=== PATIENT | male | born 1985 | race American Indian/Alaskan Native ===

== ENCOUNTER 2020-11-14 20:06 | Emergency (ER) | payer SELFPAY ==
[2020-11-14 21:30] VITALS: BP 176/99
[2020-11-15 00:02] LABS: Hematocrit 35.7 % (35.5-45.6); Hemoglobin 12.1 gm/dl (11.8-15.2); Mean Corpuscular HGB Conc 34 % (32-34); Mean Corpuscular Volume 80 fl (84-94); Platelet Count 534 K/mm3 (140-440); Red Blood Count 4.45 M/mm3 (3.65-5.03)
[2020-11-15 01:24] LABS: BUN/Creatinine Ratio TNR; Blood Urea Nitrogen TNR mg/dL (9-20); Calcium TNR mg/dL (8.4-10.2)
[2020-11-15 01:25] LABS: Alanine Aminotransferase TNR units/L (7-56); Albumin TNR g/dL (3.9-5); Hemolysis Index TNR
[2020-11-15] MEDS ORDERED: methylPREDNISolone Sod Succinate 125 MG/2 ML INJ IV ONE (02:18)
[2020-11-15 02:45] LABS: Bilirubin,Urine NEG (Negative); Blood,Urine NEG (Negative); Color,Urine Yellow (Yellow); Mucus,Urine 1+ /HPF; Protein,Urine <15 mg/dL mg/dL (Negative); Urobilinogen,Urine < 2.0 mg/dL (<2.0)
--- NOTE | 2020-11-15 02:46 | Emergency Department Report ---
ED Neuro Deficit HPI - General Chief Complaint: Extremity Injury, Lower Stated Complaint: MS PAIN,NUMBNESS Time Seen by Provider: 11/15/20 01:29 Source: patient Mode of arrival: Wheelchair Limitations: No Limitations - History of Present Illness Initial Comments: 35-year-old F Congolese male with a known history of multiple sclerosis noncompliant with medications was previously being seen at [facility] but has now reverted to utilizing various emergency departments for his thyroid management and taking no regulatory medications. Reports no fevers chills or sweats no no chest pain but does have progressively worsening tingling and weakness and ataxia to her lower extremities which has been worsening over the last 1 week. Symptoms overall have been present for over 3 weeks. He reports no trauma, no tingling no speech issues no headaches no blurred vision no shortness of breath no illicit drug use. -: Gradual (2 to 3 weeks of symptoms with which worsened over the last week) Location: ataxia Presenting Symptoms: Absent: Weak/Paralyzed One Side, Sudden, Severe Headache, Blurred/Loss of Vision, Facial Droop/Numbness, Unable to Speak Clearly, Altered Mental Status History of same: Yes Place: home Severity: mild, moderate Quality: tingling On Anticoagulants: No Context: gradual onset Associated Symptoms: denies: confusion, chest pain, diaphoresis, loss of appetite, malise, nausea/vomiting, vertigo, seizures, syncope, weakness Treatments Prior to Arrival: none - Related Data Home Medications: Previous Rx's Medication Instructions Recorded Last Taken Type methylPREDNISolone [Medrol 4MG 4 mg PO DAILY #21 tab.ds.pk 11/15/20 Unknown Rx DOSEPAK (21 tabs)] Allergies/Adverse Reactions: Allergies Allergy/AdvReac Type Severity Reaction Status Date / Time albuterol Allergy Hives Verified 11/14/20 21:30 ibuprofen Allergy Hives Verified 11/14/20 21:30 ED Review of Systems ROS: Stated complaint: MS PAIN,NUMBNESS Other details as noted in HPI Comment: All other systems reviewed and negative ED Past Medical Hx - Past Medical History Previous Medical History?: Yes Hx Hypertension: Yes Hx Psychiatric Treatment: Yes (Depression, Anxiety) Additional medical history: Multiple Scelerosis - Surgical History Past Surgical History?: No - Social History Smoking Status: Current Every Day Smoker Substance Use Type: Marijuana - Medications Home Medications: Home Medications Medication Instructions Recorded Confirmed Last Taken Type methylPREDNISolone [Medrol 4MG 4 mg PO DAILY #21 tab.ds.pk 11/15/20 Unknown Rx DOSEPAK (21 tabs)] ED Neuro Physical Exam - General Limitations: No Limitations General appearance: alert, in no apparent distress Suspected Stroke: No - Head Head exam: Present: atraumatic, normocephalic - Eye Eye exam: Present: normal appearance, PERRL, EOMI Pupils: Present: normal accommodation - ENT ENT exam: Present: normal exam, normal orophraynx, mucous membranes moist, TM's normal bilaterally - Neck Neck exam: Present: normal inspection - Respiratory Respiratory exam: Present: normal lung sounds bilaterally. Absent: respiratory distress - Cardiovascular Cardiovascular Exam: Present: regular rate, normal rhythm. Absent: systolic murmur, diastolic murmur, rubs, gallop - GI/Abdominal GI/Abdominal exam: Present: soft, normal bowel sounds. Absent: tenderness, guarding, hypoactive bowel sounds - Rectal Rectal exam: Present: deferred - Extremities Exam Extremities exam: Present: normal inspection - Back Exam Back exam: Present: normal inspection - Neurological Exam Neurological exam: Present: alert, oriented X3, abnormal gait (Ataxia noted) - NIHSS Assessment Interval: Baseline 1a. Level of Consciousness: alert/keenly responsive 1b. LOC Questions: answers both correctly 1c. LOC Commands: performs tasks correctly 2. Best Gaze: normal 3. Visual: no visual loss 4. Facial Palsy: normal symmetrical movement 5b. Motor Arm Right: no drift 5a. Motor Arm Left: no drift 6a. Motor Leg Left: no drift 6b. Motor Leg Right: no drift 7. Limb Ataxia: present 2 limbs 8. Sensory: normal 9. Best Language: no aphasia 10. Dysarthria: normal 11. Extinction/Inattention: no abnormality Total Score: 2 Stroke Severity: Minor Stroke - Psychiatric Psychiatric exam: Present: normal affect, normal mood - Skin Skin exam: Present: warm, dry, intact, normal color. Absent: rash ED Course Vital Signs 11/14/20 21:29 Temperature 98.2 F Pulse Rate 102 H Respiratory 18 Rate Blood Pressure 176/99 [Left] O2 Sat by Pulse 100 Oximetry - Lab Data Result diagrams: 11/14/20 23:13 11/14/20 23:13 Lab Results 11/14/20 11/14/20 11/15/20 Range/Units 23:13 23:13 01:30 WBC 9.4 (4.5-11.0) K/mm3 RBC 4.45 (3.65-5.03) M/mm3 Hgb 12.1 (11.8-15.2) gm/dl Hct 35.7 (35.5-45.6) % MCV 80 L (84-94) fl MCH 27 L (28-32) pg MCHC 34 (32-34) % RDW 21.0 H (13.2-15.2) % Plt Count 534 H (140-440) K/mm3 Add Manual Diff Complete Total Counted 100 Seg Neuts % (Manual) 62.0 (40.0-70.0) % Band Neutrophils % 1.0 % Lymphocytes % (Manual) 33.0 (13.4-35.0) % Monocytes % (Manual) 4.0 (0.0-7.3) % Nucleated RBC % Not Reportable Seg Neutrophils # Man 5.8 (1.8-7.7) K/mm3 Band Neutrophils # 0.1 K/mm3 Lymphocytes # (Manual) 3.1 (1.2-5.4) K/mm3 Abs React Lymphs (Man) 0.0 K/mm3 Monocytes # (Manual) 0.4 (0.0-0.8) K/mm3 Eosinophils # (Manual) 0.0 (0.0-0.4) K/mm3 Basophils # (Manual) 0.0 (0.0-0.1) K/mm3 Metamyelocytes # 0.0 K/mm3 Myelocytes # 0.0 K/mm3 Promyelocytes # 0.0 K/mm3 Blast Cells # 0.0 K/mm3 WBC Morphology Not Reportable Hypersegmented Neuts Not Reportable Hyposegmented Neuts Not Reportable Hypogranular Neuts Not Reportable Smudge Cells Not Reportable Toxic Granulation Not Reportable Toxic Vacuolation Not Reportable Dohle Bodies Not Reportable Pelger-Huet Anomaly Not Reportable Jolene Rods Not Reportable Platelet Estimate Consistent w auto Clumped Platelets Not Reportable Plt Clumps, EDTA Not Reportable Large Platelets Not Reportable Giant Platelets Not Reportable Platelet Satelliting Not Reportable Plt Morphology Comment Not Reportable RBC Morphology Not Reportable Dimorphic RBCs Not Reportable Polychromasia Not Reportable Hypochromasia Not Reportable Poikilocytosis Not Reportable Anisocytosis 1+ Microcytosis Not Reportable Macrocytosis Not Reportable Spherocytes Not Reportable Pappenheimer Bodies Not Reportable Sickle Cells Not Reportable Target Cells Not Reportable Tear Drop Cells Not Reportable Ovalocytes Not Reportable Helmet Cells Not Reportable [place] Bodies Not Reportable [place] Rings Not Reportable Marie Cells Not Reportable Bite Cells Not Reportable Crenated Cell Not Reportable Elliptocytes Not Reportable Acanthocytes (Spur) Not Reportable Rouleaux Not Reportable Hemoglobin C Crystals Not Reportable Schistocytes Not Reportable Malaria parasites Not Reportable Cricket Bodies Not Reportable Hem Pathologist Commnt No Sodium TNR Potassium TNR Chloride TNR Carbon Dioxide TNR Anion Gap TNR BUN TNR Creatinine TNR Estimated GFR TNR BUN/Creatinine Ratio TNR Glucose TNR Calcium TNR Total Bilirubin TNR AST TNR ALT TNR Alkaline Phosphatase TNR Total Protein TNR Albumin TNR Albumin/Globulin Ratio TNR Urine Color Yellow (Yellow) Urine Turbidity Clear (Clear) Urine pH 5.0 (5.0-7.0) Ur Specific [place] 1.015 (1.003-1.030) Urine Protein <15 mg/dl (Negative) mg/dL Urine Glucose (UA) Neg (Negative) mg/dL Urine Ketones Neg (Negative) mg/dL Urine Blood Neg (Negative) Urine Nitrite Neg (Negative) Urine Bilirubin Neg (Negative) Urine Urobilinogen < 2.0 (<2.0) mg/dL Ur Leukocyte Esterase Neg (Negative) Urine WBC (Auto) 0.0 (0.0-6.0) /HPF Urine RBC (Auto) 2.0 (0.0-6.0) /HPF Urine Mucus 1+ /HPF - Radiology Data Radiology results: report reviewed [facility] [address] [place] [address] Cat Scan Report Signed Patient: LUC GILBERT MR#: [id number] : 1985 Acct:[id number] Age/Sex: 35 / M ADM Date: 11/14/20 Loc: ED Attending Dr: Ordering Physician: MICHELLE LOPEZ Date of Service: 11/15/20 Procedure(s): CT head/brain wo con Accession Number(s): [id number] cc: MICHELLE LOPEZ CT HEAD WITHOUT CONTRAST INDICATION: pain, MS flare, ataxia TECHNIQUE: All CT scans at this location are performed using CT dose reduction for ALARA by means of automated exposure control. COMPARISON: None available. FINDINGS: BRAIN: No hemorrhage or mass effect are seen. No evidence of acute infarction is noted. ORBITS: Normal as visualized. SOFT TISSUES OF HEAD: Normal. CALVARIUM: Normal. VISUALIZED PARANASAL SINUSES AND MASTOID AIR CELLS: Clear. ADDITIONAL FINDINGS: None. IMPRESSION: No acute intracranial abnormality. Signer Name: Sylvester Vital MD Signed: 11/15/2020 3:06 AM Workstation Name: [id number] Transcribed By: GJ Dictated By: Sylvester Vital MD Electronically Authenticated By: Sylvester Vital MD Signed Date/Time: 11/15/20305 DD/ 2 TD/TT: - Medical Decision Making 35-year-old male with known history moved closer to the emergency department c omplaining of a flareup. Examination did show some signs of ataxia and some weakness he was treated accordingly with a dose of steroids. Case was discussed with hospitalist Dr. Flaca morelos advised no reason for admission and recommended he be discharged with follow-up at the [facility]. Mr. Strickland states that he has been seen at the [facility] previously and was a patient but had for reasons unknown to stop taking the medication and stopped on states he is able to get a follow-up appointment at the facility but does request steroids now and feels he is safe to go home and will return if his symptoms worsen. Attending is aware of findings and recommendations Critical care attestation.: If time is entered above; I have spent that time in minutes in the direct care of this critically ill patient, excluding procedure time. ED Disposition Clinical Impression: Acute relapsing multiple sclerosis Disposition: - TO HOME OR SELFCARE Is pt being admited?: No Does the pt Need Aspirin: No Condition: Stable Instructions: Multiple Sclerosis Additional Instructions: Please be sure to follow-up at the [facility] which you already established as we discussed. Prescriptions: methylPREDNISolone [Medrol 4MG DOSEPAK (21 tabs)] 4 mg PO DAILY #21 tab.ds.pk Referrals: [facility], [place] [Other] - 3-5 Days PRIMARY CARE, [Primary Care Provider] - 3-5 Days
--- NOTE | 2020-11-15 03:11 | Cat Scan Report ---
CT HEAD WITHOUT CONTRAST INDICATION: pain, MS flare, ataxia TECHNIQUE: All CT scans at this location are performed using CT dose reduction for ALARA by means of automated exposure control. COMPARISON: None available. FINDINGS: BRAIN: No hemorrhage or mass effect are seen. No evidence of acute infarction is noted. ORBITS: Normal as visualized. SOFT TISSUES OF HEAD: Normal. CALVARIUM: Normal. VISUALIZED PARANASAL SINUSES AND MASTOID AIR CELLS: Clear. ADDITIONAL FINDINGS: None. IMPRESSION: No acute intracranial abnormality. Signer Name: Sylvester Vital MD Signed: 11/15/2020 3:06 AM Workstation Name: [id number]
[2020-11-15 03:25] LABS: Total Cells Counted 100
[2020-11-15 03:26] LABS: Anisocytosis 1+; Band Neutrophils # (Manual) 0.1 K/mm3; Platelet Estimate Consistent w Auto
[2020-11-15] MEDS ORDERED: methylPREDNISolone Sod Succinate 125 MG/2 ML INJ ONE (04:24)
[2020-11-15 06:39] LABS: Alanine Aminotransferase 14 units/L (7-56); Albumin 4.1 g/dL (3.9-5); BUN/Creatinine Ratio 14; Blood Urea Nitrogen 10 mg/dL (9-20); Hemolysis Index 2
== END 2020-11-15 05:50 | disposition home or self-care (01) ==
LOC: ED 20:06
DX: G35 Multiple sclerosis (principal); I10 Essential (primary) hypertension; F32.9 Major depressive disorder, single episode, unspecified; F41.9 Anxiety disorder, unspecified; F17.200 Nicotine dependence, unspecified, uncomplicated; F12.10 Cannabis abuse, uncomplicated; Z79.899 Other long term (current) drug therapy; Z88.8 Allergy status to other drugs, medicaments and biological substances
CPT/HCPCS: 36415; 70450; 80053; 81001; 85007; 85025; 96374; 99284; J2930

== ENCOUNTER 2020-11-15 10:57 | Inpatient (IN) | payer OTHER ==
--- NOTE | 2020-11-15 17:27 | Emergency Department Report ---
HPI - General Chief Complaint: Pain General Time Seen by Provider: 11/15/20 17:06 - HPI HPI: Room 43 The patient is a 35-year-old male present with a chief complaint of MS crisis. The patient states his symptoms began approximately 3 weeks ago with symptoms consistent with his previous MS flares which includes numbness and weakness in all of his extremities. The patient states he initially found himself stumbling and missing steps. Over the past 5 days the patient states she has been unable to walk or performs his activities of daily living secondary to this weakness. The patient states he has a wheelchair at home however with his upper extremity weakness he is unable to propel himself. The patient states he lives at home alone. The patient was seen yesterday for these complaints and given Solu- Medrol and a prescription for steroids to go home. The patient states his legs had felt slightly improved but he is still unable to care for himself at home. ED Past Medical Hx - Past Medical History Previous Medical History?: Yes Hx Hypertension: Yes Hx Psychiatric Treatment: Yes (Depression, Anxiety) Additional medical history: Multiple Scelerosis - Surgical History Past Surgical History?: No - Family History Family history: no significant - Social History Smoking Status: Current Every Day Smoker (1/3 pack/day) Substance Use Type: Marijuana - Medications Home Medications: Home Medications Medication Instructions Recorded Confirmed Last Taken Type methylPREDNISolone [Medrol 4MG 4 mg PO DAILY #21 tab.ds.pk 11/15/20 Unknown Rx DOSEPAK (21 tabs)] ED Review of Systems ROS: Stated complaint: MS CRISIS Other details as noted in HPI Constitutional: denies: fever Eyes: denies: eye pain ENT: denies: throat pain Respiratory: no symptoms reported Cardiovascular: denies: chest pain Endocrine: no symptoms reported Gastrointestinal: denies: abdominal pain Genitourinary: denies: dysuria Musculoskeletal: back pain Neurological: headache Physical Exam - Physical Exam Vital Signs: Vital Signs 11/15/20 11:48 Temperature 97.5 F L Pulse Rate 87 Respiratory 18 Rate Blood Pressure 208/104 [Right] O2 Sat by Pulse 96 Oximetry Physical Exam: GENERAL: The patient is well-developed well-nourished male sitting in chair not appearing to be in acute distress HEENT: Normocephalic. Atraumatic. Extraocular motions are intact. Patient has moist mucous membranes. NECK: Supple. Trachea midline CHEST/LUNGS: Clear to auscultation. There is no respiratory distress noted. HEART/CARDIOVASCULAR: Regular. There is no tachycardia. There is no gallop rub or murmur. ABDOMEN: Abdomen is soft, nontender. Patient has normal bowel sounds. There is no abdominal distention. SKIN: There is no rash. There is no edema. There is no diaphoresis. NEURO: The patient is awake, alert, and oriented. The patient is cooperative. The patient is unable to stand secondary to weakness in the lower extremities. The patient exhibits difficulty extending either leg at the knee while seated. The patient states both legs feel numb to light touch. The patient has normal speech. Cranial nerves II through XII grossly intact MUSCULOSKELETAL: There is no evidence of acute injury. ED Course Vital Signs 11/15/20 11:48 Temperature 97.5 F L Pulse Rate 87 Respiratory 18 Rate Blood Pressure 208/104 [Right] O2 Sat by Pulse 96 Oximetry ED Medical Decision Making - Lab Data Labs reviewed from 11/14/2020 visit - Differential Diagnosis MS flare Critical care attestation.: If time is entered above; I have spent that time in minutes in the direct care of this critically ill patient, excluding procedure time. ED Disposition Clinical Impression: Multiple sclerosis exacerbation, Inability to perform activities of daily living Disposition: OP ADMIT IP TO THIS HOSP Is pt being admited?: Yes Does the pt Need Aspirin: No Condition: Fair Referrals: PRIMARY CARE, [Primary Care Provider] - 3-5 Days Time of Disposition: 21:08 (Hospitalist paged (Dr. Thayer))
[2020-11-15] MEDS ORDERED: methylPREDNISolone Sod Succinate 125 MG/2 ML INJ IV ONE (18:31)
[2020-11-15] MEDS ORDERED: HYDROcodone/ACETAMINOPHEN 5-325 MG TAB PO ONE (19:28)
[2020-11-16] MEDS ORDERED: METOCLOPRAMIDE 10 MG/2 ML INJ IV PRN (02:33)
[2020-11-16] MEDS ORDERED: ACETAMINOPHEN 325 MG TAB PO PRN (02:33)
[2020-11-16] MEDS ORDERED: HYDROmorphone 1 MG/1 ML INJ IV PRN (02:33)
[2020-11-16] MEDS ORDERED: ONDANSETRON 4 MG/2 ML INJ IV PRN (02:33)
[2020-11-16] MEDS ORDERED: SODIUM CHLORIDE 0.9% 1000 ML 1,000 ML IV SCH (02:45)
--- NOTE | 2020-11-16 03:09 | History and Physical Report ---
History of Present Illness Date of examination: 11/15/20 Date of admission: 11/15/20 22:33 Chief complaint: Weakness in both lower extremities for 5 days with inability to walk History of present illness: 35-year-old -Nigerien male with history of multiple sclerosis diagnosed in early part of 2018 comes in for weakness in both lower extremities for the last 3 weeks but more so for the last 5 days when he was unable to walk. Patient came to the emergency room yesterday and was discharged on Medrol Dosepak. Patient comes back again for lower extremity weakness for the last 5 days and not able to walk. Patient also has numbness and paresthesias. In both lower extremities. Patient gets multiple sclerosis flareups once in every 3 to 4 months. Is been going on for the last 20 months. Patient also has a wheelchair but unable to propel himself because of his upper extremity weakness. He lives at home alone. Patient is unable to take care of himself at home. - Past Medical History Previous Medical History?: Yes --Hypertension: Yes --Psychiatric Treatment: Yes (Depression, Anxiety) --Additional medical history: Multiple Scelerosis - Surgical History Past Surgical History?: No - Family History Family history: no significant - Social History Smoking Status: Current Every Day Smoker (1/3 pack/day) Substance Use Type: Marijuana - Medications Home Medications: Home Medications Medication Instructions Recorded Confirmed Last Taken Type methylPREDNISolone [Medrol 4MG 4 mg PO DAILY #21 tab.ds.pk 11/15/20 Unknown Rx DOSEPAK (21 tabs)] Review of Systems ROS: Stated complaint: MS CRISIS Other details as noted in HPI Constitutional: denies: fever Eyes: denies: eye pain ENT: denies: throat pain Respiratory: no symptoms reported Cardiovascular: denies: chest pain Endocrine: no symptoms reported Gastrointestinal: denies: abdominal pain Genitourinary: denies: dysuria Musculoskeletal: back pain Neurological: headache Medications and Allergies Allergies Allergy/AdvReac Type Severity Reaction Status Date / Time albuterol Allergy Hives Verified 11/14/20 21:30 ibuprofen Allergy Hives Verified 11/14/20 21:30 Home Medications Medication Instructions Recorded Confirmed Last Taken Type Cholecalciferol Vit D3 [Vitamin D3 tab PO 11/15/20 Unknown History 1,000 UNIT TAB] Folic Acid 1 mg PO 11/15/20 Unknown History Gabapentin [Neurontin] 400 mg PO Q8HR 11/15/20 11/15/20 Unknown History HYDROmorphone [Dilaudid] tab PO 11/15/20 11/15/20 21:00 History Naproxen 375 mg PO 11/15/20 Unknown History QUEtiapine [SEROquel] 200 mg PO BID 11/15/20 11/15/20 Unknown History Sertraline [Zoloft] 50 mg PO 11/15/20 Unknown History Vitamin B-1 11/15/20 Unknown History methylPREDNISolone [Medrol 4MG 4 mg PO DAILY #21 tab.ds.pk 11/15/20 Unknown Rx DOSEPAK (21 tabs)] Active Meds: Active Medications Acetaminophen (Acetaminophen 325 Mg Tab) 650 mg PO Q4H PRN PRN Reason: Pain MILD(1-3)/Fever >100.5/HILARIO Famotidine (Famotidine 20 Mg/2 Ml Inj) 20 mg IV BID [facility] Folic Acid (Folic Acid 1 Mg Tab) 1 mg PO QDAY SHANTANU Gabapentin (Gabapentin 400 Mg Cap) 400 mg PO Q8HR SHANTANU Hydromorphone HCl (Hydromorphone 1 Mg/1 Ml Inj) 1 mg IV Q3H PRN PRN Reason: Pain , Severe (7-10) Sodium Chloride (Nacl 0.9% 1000 Ml) 1,000 mls @ 75 mls/hr IV DIRECT SHANTANU Methylprednisolone Sodium Succinate 1,000 mg/ Sodium Chloride 250 mls @ 250 mls/hr IV Q24H [facility] Stop: 11/21/20 02:59 Metoclopramide HCl (Metoclopramide 10 Mg/2 Ml Inj) 10 mg IV Q6H PRN PRN Reason: Nausea And Vomiting Ondansetron HCl (Ondansetron 4 Mg/2 Ml Inj) 4 mg IV Q8H PRN PRN Reason: Nausea And Vomiting Oxycodone/Acetaminophen (Oxycodone /Acetaminophen 5-325mg Tab) 1 tab PO Q6H PRN PRN Reason: Pain, Moderate (4-6) Quetiapine Fumarate (Quetiapine 200 Mg Tab) 200 mg PO BID SH[facility] Sertraline HCl (Sertraline 50 Mg Tab) 50 mg PO QDAY [facility] Sodium Chloride (Sodium Chloride 0.9% 10 Ml Flush Syringe) 10 ml IV BID [facility] Sodium Chloride (Sodium Chloride 0.9% 10 Ml Flush Syringe) 10 ml IV PRN PRN PRN Reason: LINE FLUSH Exam - Constitutional Vitals: Temp Pulse Resp BP Pulse Ox 98.3 F 82 16 126/87 98 11/15/20 23:43 11/15/20 23:43 11/16/20 00:05 11/15/20 23:43 11/16/20 00:05 General appearance: Present: no acute distress, well-nourished - EENT Eyes: Present: PERRL ENT: hearing intact, clear oral mucosa - Neck Neck: Present: supple, normal ROM - Respiratory Respiratory effort: normal Respiratory: bilateral: CTA - Cardiovascular Heart rate: 78 Rhythm: regular Heart Sounds: Present: S1 & S2. Absent: rub, click - Extremities Extremities: pulses symmetrical, No edema Peripheral Pulses: within normal limits - Abdominal General gastrointestinal: Present: soft, non-tender, non-distended, normal bowel sounds Male genitourinary: Present: normal - Integumentary Integumentary: Present: clear, warm, dry - Musculoskeletal Musculoskeletal: other (Both lower extremity weakness power is 1/5 in both lower extremities. Sensation normal) - Psychiatric Psychiatric: appropriate mood/affect, intact judgment & insight - Neurologic Neurologic: CNII-XII intact, focal deficits (Power is 1/5 power in both lower extremities) Assessment and Plan Advance Directives: Yes (Full code) VTE prophylaxis?: Chemical Plan of care discussed with patient/family: Yes - Patient Problems (1) Multiple sclerosis exacerbation Current Visit: Yes Status: Acute Plan to address problem: Patient unable to walk. Patient started on 1 g of Solu-Medrol every 24 hours for 5 days Patient admitted as inpatient Neurology consult requested (2) Inability to perform activities of daily living Current Visit: Yes Status: Acute Plan to address problem: Patient needs physical therapy and Occupational Therapy (3) Depression Current Visit: Yes Status: Chronic Qualifiers: Depression Type: unspecified Qualified Code(s): F32.9 - Major depressive disorder, single episode, unspecified Plan to address problem: Continue Zoloft (4) Nicotine dependence Current Visit: Yes Status: Chronic Qualifiers: Nicotine product type: cigarettes Plan to address problem: Patient counseled about smoking. Patient started on NicoDerm patch (5) DVT prophylaxis Current Visit: Yes Status: Acute Plan to address problem: On Lovenox 40 mg once a day and GI prophylaxis
[2020-11-16] MEDS: FAMOTIDINE 20 MG/2 ML INJ IV SCH ×3 (03:46→21:25)
[2020-11-16] MEDS: QUEtiapine 200 MG TAB PO SCH ×3 (05:00→21:25)
[2020-11-16] MEDS: methylPREDNISolone Sod Suc 1,000 MG in SODIUM CHLORIDE 0.9% 250ML 250 ML IV SCH (05:02)
[2020-11-16] MEDS: GABAPENTIN 400 MG CAP PO SCH ×3 (05:47→21:25)
[2020-11-16 05:58] LABS: Hematocrit 37.7 % (35.5-45.6); Hemoglobin 12.3 gm/dl (11.8-15.2); Mean Corpuscular HGB Conc 33 % (32-34); Mean Corpuscular Volume 79 fl (84-94); Platelet Count 553 K/mm3 (140-440)
[2020-11-16 06:16] LABS: Basophils % (Auto) 0.1 % (0.0-1.8); Lymphocytes # (Auto) 0.5 K/mm3 (1.2-5.4); Lymphocytes % (Auto) 3.6 % (13.4-35.0); Monocytes # (Auto) 0.1 K/mm3 (0.0-0.8); Monocytes % (Auto) 0.8 % (0.0-7.3)
[2020-11-16 06:31] LABS: Alanine Aminotransferase 12 units/L (7-56); Albumin 3.8 g/dL (3.9-5); Calcium 9.7 mg/dL (8.4-10.2); Hemolysis Index 7
[2020-11-16 06:53] LABS: BUN/Creatinine Ratio 2; Blood Urea Nitrogen 1 mg/dL (9-20)
[2020-11-16] MEDS: HYDROmorphone 2 MG TAB PO PRN ×3 (08:39→20:53)
[2020-11-16] MEDS: FOLIC ACID 1 MG TAB PO SCH (10:53)
[2020-11-16] MEDS: SERTRALINE 50 MG TAB PO SCH (10:53)
[2020-11-16] MEDS: NICOTINE 14 MG/24 HR PATCH TD SCH (10:53)
--- NOTE | 2020-11-16 12:07 | Progress Note ---
Assessment and Plan Assessment and plan: 1) Multiple sclerosis exacerbation Current Visit: Yes Status: Acute Plan to address problem: Patient unable to walk. Patient started on 1 g of Solu-Medrol every 24 hours for 5 days Neurology consult requested MRI brain, cervical, thoracici and lumbar ordered (2) Inability to perform activities of daily living Current Visit: Yes Status: Acute Plan to address problem: Patient needs physical therapy and Occupational Therapy (3) Depression Current Visit: Yes Status: Chronic Qualifiers: Depression Type: unspecified Qualified Code(s): F32.9 - Major depressive disorder, single episode, unspecified Plan to address problem: Continue Zoloft (4) Nicotine dependence Current Visit: Yes Status: Chronic Qualifiers: Nicotine product type: cigarettes Plan to address problem: Patient counseled about smoking. Patient started on NicoDerm patch (5) DVT prophylaxis Current Visit: Yes Status: Acute Plan to address problem: On Lovenox 40 mg once a day and GI prophylaxis History Interval history: Complains of weakness of both legs He is on methylprednisolone 1g daily x 5 days MRI studies ordered Neurology consulted. Hospitalist Physical - Physical exam Narrative exam: VITAL SIGNS: Reviewed. GENERAL: Awake HEAD: No signs of head trauma. EYES: Pupils are equal. Extraocular motions intact. MOUTH: Oropharynx is normal. NECK: No adenopathy, no JVD. CHEST: Chest with diminished breath sounds bilaterally. No wheezes, rales, or rhonchi. CARDIAC: normal S1 and S2, without murmurs, gallops, or rubs. ABDOMEN: Soft, non tender and non distended. No rebound or guarding, and no masses palpated. Bowel Sounds normal. MUSCULOSKELETAL: LE : 3-4/5 on both lower extremities NEUROLOGIC EXAM: Alert and oriented x3. No focal neurologic deficits SKIN: No obvious lesions - Constitutional Vitals: Temp Pulse Resp BP Pulse Ox 98.6 F 96 H 18 171/106 95 11/16/20 08:15 11/16/20 08:15 11/16/20 08:15 11/16/20 08:15 11/16/20 08:15 Results - Labs CBC & Chem 7: 11/16/20 05:05 11/16/20 05:05 Labs: Laboratory Last Values WBC 13.0 K/mm3 (4.5-11.0) H 11/16/20 05:05 RBC 4.80 M/mm3 (3.65-5.03) 11/16/20 05:05 Hgb 12.3 gm/dl (11.8-15.2) 11/16/20 05:05 Hct 37.7 % (35.5-45.6) 11/16/20 05:05 MCV 79 fl (84-94) L 11/16/20 05:05 MCH 26 pg (28-32) L 11/16/20 05:05 MCHC 33 % (32-34) 11/16/20 05:05 RDW 21.0 % (13.2-15.2) H 11/16/20 05:05 Plt Count 553 K/mm3 (140-440) H 11/16/20 05:05 Lymph % (Auto) 3.6 % (13.4-35.0) L 11/16/20 05:05 [place] % (Auto) 0.8 % (0.0-7.3) 11/16/20 05:05 Eos % (Auto) 0.0 % (0.0-4.3) 11/16/20 05:05 Baso % (Auto) 0.1 % (0.0-1.8) 11/16/20 05:05 Lymph # (Auto) 0.5 K/mm3 (1.2-5.4) L 11/16/20 05:05 [place] # (Auto) 0.1 K/mm3 (0.0-0.8) 11/16/20 05:05 Eos # (Auto) 0.0 K/mm3 (0.0-0.4) 11/16/20 05:05 Baso # (Auto) 0.0 K/mm3 (0.0-0.1) 11/16/20 05:05 Seg Neutrophils % 95.5 % (40.0-70.0) H 11/16/20 05:05 Seg Neutrophils # 12.4 K/mm3 (1.8-7.7) H 11/16/20 05:05 Sodium 141 mmol/L (137-145) 11/16/20 05:05 Potassium 4.3 mmol/L (3.6-5.0) 11/16/20 05:05 Chloride 100.0 mmol/L (98-107) 11/16/20 05:05 Carbon Dioxide 26 mmol/L (22-30) 11/16/20 05:05 Anion Gap 19 mmol/L 11/16/20 05:05 BUN 1 mg/dL (9-20) L 11/16/20 05:05 Creatinine 0.6 mg/dL (0.8-1.3) L 11/16/20 05:05 Estimated GFR > 60 ml/min 11/16/20 05:05 BUN/Creatinine Ratio 2 % 11/16/20 05:05 Glucose 122 mg/dL (75-100) H 11/16/20 05:05 Hemoglobin A1c 5.8 % (4-6) 11/16/20 05:05 Calcium 9.7 mg/dL (8.4-10.2) 11/16/20 05:05 Total Bilirubin 0.20 mg/dL (0.1-1.2) 11/16/20 05:05 AST 9 units/L (5-40) 11/16/20 05:05 ALT 12 units/L (7-56) 11/16/20 05:05 Alkaline Phosphatase 91 units/L (35-129) 11/16/20 05:05 Total Protein 7.1 g/dL (6.3-8.2) 11/16/20 05:05 Albumin 3.8 g/dL (3.9-5) L 11/16/20 05:05 Albumin/Globulin Ratio 1.2 % 11/16/20 05:05 Hernandez/IV: Voiding Method Urinal IV Catheter Type [Right Wrist] INT / Saline Lock IV Catheter Type [Right Hand] INT / Saline Lock Active Medications - Current Medications Current Medications: Generic Name Dose Route Start Last Admin Trade Name Freq PRN Reason Stop Dose Admin Acetaminophen 650 mg 11/16/20 02:33 Acetaminophen 325 Mg Tab PO Q4H PRN Pain MILD(1-3)/Fever >100.5/HILARIO Amlodipine Besylate 10 mg 11/16/20 12:00 Amlodipine 10 Mg Tab PO QDAY [facility] Enoxaparin Sodium 40 mg 11/16/20 22:00 Enoxaparin 40 Mg/0.4 Ml Inj SUB-Q QDAY@2200 [facility] Protocol Famotidine 20 mg 11/16/20 03:00 11/16/20 03:46 Famotidine 20 Mg/2 Ml Inj IV 20 mg BID [facility] Administration Folic Acid 1 mg 11/16/20 10:00 11/16/20 10:53 Folic Acid 1 Mg Tab PO 1 mg QDAY SHANTANU Administration Gabapentin 400 mg 11/16/20 06:00 11/16/20 05:47 Gabapentin 400 Mg Cap PO 400 mg Q8HR SHANTANU Administration Hydromorphone HCl 1 mg 11/16/20 02:33 11/16/20 03:43 Hydromorphone 1 Mg/1 Ml Inj IV 1 mg Q3H PRN Administration Pain , Severe (7-10) Hydromorphone HCl 4 mg 11/16/20 03:14 11/16/20 08:39 Hydromorphone 2 Mg Tab PO 4 mg QID PRN Administration Pain , Severe (7-10) Sodium Chloride 1,000 mls @ 75 mls/hr 11/16/20 02:45 11/16/20 03:43 Nacl 0.9% 1000 Ml IV 75 mls/hr DIRECT SHANTANU Administration Methylprednisolone Sodium 250 mls @ 250 mls/hr 11/16/20 05:00 11/16/20 05:02 Succinate 1,000 mg/ Sodium IV 11/21/20 04:59 250 mls/hr Chloride Q24H SHANTANU Administration Metoclopramide HCl 10 mg 11/16/20 02:33 Metoclopramide 10 Mg/2 Ml Inj IV Q6H PRN Nausea And Vomiting Nicotine 14 mg 11/16/20 10:00 11/16/20 10:53 Nicotine 14 Mg/24 Hr Patch TD 14 mg QDAY SHANTANU Administration Ondansetron HCl 4 mg 11/16/20 02:33 Ondansetron 4 Mg/2 Ml Inj IV Q8H PRN Nausea And Vomiting Oxycodone/Acetaminophen 1 tab 11/16/20 02:33 Oxycodone /Acetaminophen 5-325mg Tab PO Q6H PRN Pain, Moderate (4-6) Quetiapine Fumarate 200 mg 11/16/20 22:00 Quetiapine 200 Mg Tab PO QHS SHANTANU Sertraline HCl 50 mg 11/16/20 10:00 11/16/20 10:53 Sertraline 50 Mg Tab PO 50 mg QDAY SHANTANU Administration Sodium Chloride 10 ml 11/16/20 10:00 11/16/20 10:53 Sodium Chloride 0.9% 10 Ml Flush Syringe IV 10 ml BID SHANTANU Administration Sodium Chloride 10 ml 11/16/20 02:33 Sodium Chloride 0.9% 10 Ml Flush Syringe IV PRN PRN LINE FLUSH
[2020-11-16] MEDS: amLODIPine 10 MG TAB PO SCH (13:30)
[2020-11-16] MEDS: ENOXAPARIN 40 MG/0.4 ML INJ SUB-Q SCH (21:25)
[2020-11-17] MEDS: GABAPENTIN 400 MG CAP PO SCH ×3 (05:17→22:46)
[2020-11-17] MEDS: HYDROmorphone 2 MG TAB PO PRN ×3 (05:22→20:48)
[2020-11-17] MEDS: methylPREDNISolone Sod Suc 1,000 MG in SODIUM CHLORIDE 0.9% 250ML 250 ML IV SCH (05:55)
[2020-11-17 06:04] LABS: Blood Urea Nitrogen 15 mg/dL (9-20); Calcium 9.5 mg/dL (8.4-10.2); Hemolysis Index 28
[2020-11-17 06:07] LABS: BUN/Creatinine Ratio 25
[2020-11-17] MEDS: oxyCODONE /ACETAMINOPHEN 5-325MG TAB PO PRN ×2 (09:29→16:33)
[2020-11-17] MEDS: NICOTINE 14 MG/24 HR PATCH TD SCH (09:29)
[2020-11-17] MEDS: amLODIPine 10 MG TAB PO SCH (09:29)
[2020-11-17] MEDS: FOLIC ACID 1 MG TAB PO SCH (09:29)
[2020-11-17] MEDS: FAMOTIDINE 20 MG/2 ML INJ IV SCH (09:29)
[2020-11-17] MEDS: SERTRALINE 50 MG TAB PO SCH ×2 (09:29→20:15)
--- NOTE | 2020-11-17 11:24 | Consultation ---
History of Present Illness Consult date: 11/17/20 Reason for Consult: MS Flareup Chief complaint: Weakness History of present illness: 35 yo male with MS since early 2019 who presents with noted worsening weakness over the 3 weeks but specifically more worse in the last 5 days to where he is having difficulty with his wheelchair for mobility as his arms have also become involved. Per RN, the patient has noticed some improvement with the initiation of Solumedrol. Medications and Allergies Allergies Allergy/AdvReac Type Severity Reaction Status Date / Time albuterol Allergy Hives Verified 11/14/20 21:30 ibuprofen Allergy Hives Verified 11/14/20 21:30 Home Medications Medication Instructions Recorded Confirmed Last Taken Type Cholecalciferol Vit D3 [Vitamin D3 2 tab PO DAILY 11/15/20 11/16/20 Unknown History 1,000 UNIT TAB] Folic Acid 1 mg PO DAILY 11/15/20 11/16/20 Unknown History Gabapentin [Neurontin] 400 mg PO Q8HR 11/15/20 11/15/20 Unknown History HYDROmorphone [Dilaudid] tab PO 11/15/20 11/15/20 21:00 History Naproxen 375 mg PO 11/15/20 Unknown History QUEtiapine [SEROquel] 200 mg PO BID 11/15/20 11/15/20 Unknown History Sertraline [Zoloft] 150 mg PO DAILY 11/15/20 11/16/20 Unknown History Vitamin B-1 1 mg PO DAILY 11/15/20 11/16/20 Unknown History methylPREDNISolone [Medrol 4MG 4 mg PO DAILY #21 tab.ds.pk 11/15/20 Unknown Rx DOSEPAK (21 tabs)] Ferosul 65 mg PO DAILY 11/16/20 11/16/20 Unknown History Tamsulosin [Flomax] 0.4 mg PO DAILY 11/16/20 11/16/20 Unknown History Active Meds: Active Medications Acetaminophen (Acetaminophen 325 Mg Tab) 650 mg PO Q4H PRN PRN Reason: Pain MILD(1-3)/Fever >100.5/HILARIO Amlodipine Besylate (Amlodipine 10 Mg Tab) 10 mg PO QDAY [facility] Last Admin: 11/17/20 09:29 Dose: 10 mg Documented by: Enoxaparin Sodium (Enoxaparin 40 Mg/0.4 Ml Inj) 40 mg SUB-Q QDAY@2200 SHANTANU; Protocol Last Admin: 11/16/20 21:25 Dose: 40 mg Documented by: Famotidine (Famotidine 20 Mg/2 Ml Inj) 20 mg IV BID [facility] Last Admin: 11/17/20 09:29 Dose: 20 mg Documented by: Folic Acid (Folic Acid 1 Mg Tab) 1 mg PO QDAY [facility] Last Admin: 11/17/20 09:29 Dose: 1 mg Documented by: Gabapentin (Gabapentin 400 Mg Cap) 400 mg PO Q8HR [facility] Last Admin: 11/17/20 05:17 Dose: 400 mg Documented by: Hydromorphone HCl (Hydromorphone 2 Mg Tab) 4 mg PO QID PRN PRN Reason: Pain , Severe (7-10) Last Admin: 11/17/20 05:22 Dose: 4 mg Documented by: Sodium Chloride (Nacl 0.9% 1000 Ml) 1,000 mls @ 75 mls/hr IV DIRECT [facility] Last Admin: 11/16/20 03:43 Dose: 75 mls/hr Documented by: Methylprednisolone Sodium Succinate 1,000 mg/ Sodium Chloride 250 mls @ 250 mls/hr IV Q24H [facility] Stop: 11/21/20 04:59 Last Admin: 11/17/20 05:55 Dose: 250 mls/hr Documented by: Metoclopramide HCl (Metoclopramide 10 Mg/2 Ml Inj) 10 mg IV Q6H PRN PRN Reason: Nausea And Vomiting Nicotine (Nicotine 14 Mg/24 Hr Patch) 14 mg TD QDAY [facility] Last Admin: 11/17/20 09:29 Dose: 14 mg Documented by: Ondansetron HCl (Ondansetron 4 Mg/2 Ml Inj) 4 mg IV Q8H PRN PRN Reason: Nausea And Vomiting Oxycodone/Acetaminophen (Oxycodone /Acetaminophen 5-325mg Tab) 1 tab PO Q6H PRN PRN Reason: Pain, Moderate (4-6) Last Admin: 11/17/20 09:29 Dose: 1 tab Documented by: Quetiapine Fumarate (Quetiapine 200 Mg Tab) 200 mg PO QHS [facility] Last Admin: 11/16/20 21:25 Dose: 200 mg Documented by: Sertraline HCl (Sertraline 50 Mg Tab) 50 mg PO QDAY [facility] Last Admin: 11/17/20 09:29 Dose: 50 mg Documented by: Sodium Chloride (Sodium Chloride 0.9% 10 Ml Flush Syringe) 10 ml IV BID SHANTANU Last Admin: 11/17/20 09:27 Dose: 10 ml Documented by: Sodium Chloride (Sodium Chloride 0.9% 10 Ml Flush Syringe) 10 ml IV PRN PRN PRN Reason: LINE FLUSH Physical Examination - Vital Signs Vital Signs: Vital Signs Temp Pulse Resp BP Pulse Ox 97.5 F L 87 18 208/104 96 11/15/20 11:48 11/15/20 11:48 11/15/20 11:48 11/15/20 11:48 11/15/20 11:48 - Physical Exam Narrative exam: Patient is in restroom during rounds. Results - Laboratory Findings CBC and BMP: 11/16/20 05:05 11/17/20 04:41 Abnormal Lab Findings: Abnormal Labs 11/16/20 11/16/20 11/17/20 05:05 05:05 04:41 WBC 13.0 H MCV 79 L MCH 26 L RDW 21.0 H Plt Count 553 H Lymph % (Auto) 3.6 L Lymph # (Auto) 0.5 L Seg Neutrophils % 95.5 H Seg Neutrophils # 12.4 H BUN 1 L Creatinine 0.6 L 0.6 L Glucose 122 H 139 H Albumin 3.8 L Assessment and Plan 35 yo male with MS flare with lower>upper extremity weakness. 1. MS Exacerbation - Solumedrol 500 mg IV q12 x 10 doses (and then a Prednsione taper starting with 80 mg po day, with a 10 mg reduction each day) w/ SSI/Accuchecks/GI prophylaxis; pt/ot evalution/monitoring; mri brain/spine pending to confirm enhancement of lesions vs. recrudescence of previous MS lesion(s) secondary to underlying metabolic/infectious/inflammatory disease. 2. Leg>Arm Weakness - pt/ot evaluaiton/monitoring. 3. Followup with Neurology in 4 weeks. Art Vigil MD Neurology
[2020-11-17] MEDS ORDERED: LORazepam 2 MG/ML VIAL IV ONE (14:00)
--- NOTE | 2020-11-17 16:37 | Progress Note ---
Assessment and Plan Assessment and plan: 1) Multiple sclerosis exacerbation Current Visit: Yes Status: Acute Plan to address problem: Patient started on 1 g of Solu-Medrol every 24 hours for 5 days Neurology consult requested MRI brain, cervical, thoracic and lumbar pending (2) Inability to perform activities of daily living Current Visit: Yes Status: Acute Plan to address problem: Patient needs physical therapy and Occupational Therapy (3) Depression Current Visit: Yes Status: Chronic Qualifiers: Depression Type: unspecified Qualified Code(s): F32.9 - Major depressive disorder, single episode, unspecified Plan to address problem: Continue Zoloft (4) Nicotine dependence Current Visit: Yes Status: Chronic Qualifiers: Nicotine product type: cigarettes Plan to address problem: Patient counseled about smoking. Patient started on NicoDerm patch (5) DVT prophylaxis Current Visit: Yes Status: Acute Plan to address problem: On Lovenox 40 mg once a day and GI prophylaxis History Interval history: Complains of weakness of both legs He is on methylprednisolone 1g daily x 5 days MRI studies to be performed today Neurology on board Hospitalist Physical - Physical exam Narrative exam: VITAL SIGNS: Reviewed. GENERAL: Awake HEAD: No signs of head trauma. EYES: Pupils are equal. Extraocular motions intact. MOUTH: Oropharynx is normal. NECK: No adenopathy, no JVD. CHEST: Chest with diminished breath sounds bilaterally. No wheezes, rales, or rhonchi. CARDIAC: normal S1 and S2, without murmurs, gallops, or rubs. ABDOMEN: Soft, non tender and non distended. No rebound or guarding, and no masses palpated. Bowel Sounds normal. MUSCULOSKELETAL: LE : 3-4/5 on both lower extremities NEUROLOGIC EXAM: Alert and oriented x3. No focal neurologic deficits SKIN: No obvious lesions - Constitutional Vitals: Temp Pulse Resp BP Pulse Ox 98.5 F 77 18 131/79 97 11/17/20 08:37 11/17/20 08:37 11/17/20 08:37 11/17/20 08:37 11/17/20 08:37 Results - Labs CBC & Chem 7: 11/16/20 05:05 11/17/20 04:41 Labs: Laboratory Last Values WBC 13.0 K/mm3 (4.5-11.0) H 11/16/20 05:05 RBC 4.80 M/mm3 (3.65-5.03) 11/16/20 05:05 Hgb 12.3 gm/dl (11.8-15.2) 11/16/20 05:05 Hct 37.7 % (35.5-45.6) 11/16/20 05:05 MCV 79 fl (84-94) L 11/16/20 05:05 MCH 26 pg (28-32) L 11/16/20 05:05 MCHC 33 % (32-34) 11/16/20 05:05 RDW 21.0 % (13.2-15.2) H 11/16/20 05:05 Plt Count 553 K/mm3 (140-440) H 11/16/20 05:05 Lymph % (Auto) 3.6 % (13.4-35.0) L 11/16/20 05:05 [place] % (Auto) 0.8 % (0.0-7.3) 11/16/20 05:05 Eos % (Auto) 0.0 % (0.0-4.3) 11/16/20 05:05 Baso % (Auto) 0.1 % (0.0-1.8) 11/16/20 05:05 Lymph # (Auto) 0.5 K/mm3 (1.2-5.4) L 11/16/20 05:05 [place] # (Auto) 0.1 K/mm3 (0.0-0.8) 11/16/20 05:05 Eos # (Auto) 0.0 K/mm3 (0.0-0.4) 11/16/20 05:05 Baso # (Auto) 0.0 K/mm3 (0.0-0.1) 11/16/20 05:05 Seg Neutrophils % 95.5 % (40.0-70.0) H 11/16/20 05:05 Seg Neutrophils # 12.4 K/mm3 (1.8-7.7) H 11/16/20 05:05 Sodium 142 mmol/L (137-145) 11/17/20 04:41 Potassium 4.2 mmol/L (3.6-5.0) 11/17/20 04:41 Chloride 101.4 mmol/L (98-107) 11/17/20 04:41 Carbon Dioxide 24 mmol/L (22-30) 11/17/20 04:41 Anion Gap 21 mmol/L 11/17/20 04:41 BUN 15 mg/dL (9-20) 11/17/20 04:41 Creatinine 0.6 mg/dL (0.8-1.3) L 11/17/20 04:41 Estimated GFR > 60 ml/min 11/17/20 04:41 BUN/Creatinine Ratio 25 % 11/17/20 04:41 Glucose 139 mg/dL (75-100) H 11/17/20 04:41 Hemoglobin A1c 5.8 % (4-6) 11/16/20 05:05 Calcium 9.5 mg/dL (8.4-10.2) 11/17/20 04:41 Total Bilirubin 0.20 mg/dL (0.1-1.2) 11/16/20 05:05 AST 9 units/L (5-40) 11/16/20 05:05 ALT 12 units/L (7-56) 11/16/20 05:05 Alkaline Phosphatase 91 units/L (35-129) 11/16/20 05:05 Total Protein 7.1 g/dL (6.3-8.2) 11/16/20 05:05 Albumin 3.8 g/dL (3.9-5) L 11/16/20 05:05 Albumin/Globulin Ratio 1.2 % 11/16/20 05:05 Hernandez/IV: Voiding Method Toilet IV Catheter Type [Right Wrist] INT / Saline Lock IV Catheter Type [Right Hand] INT / Saline Lock Active Medications - Current Medications Current Medications: Generic Name Dose Route Start Last Admin Trade Name Freq PRN Reason Stop Dose Admin Acetaminophen 650 mg 11/16/20 02:33 Acetaminophen 325 Mg Tab PO Q4H PRN Pain MILD(1-3)/Fever >100.5/HILARIO Amlodipine Besylate 10 mg 11/16/20 12:00 11/17/20 09:29 Amlodipine 10 Mg Tab PO 10 mg QDAY [facility] Administration Enoxaparin Sodium 40 mg 11/16/20 22:00 11/16/20 21:25 Enoxaparin 40 Mg/0.4 Ml Inj SUB-Q 40 mg QDAY@2200 SHANTANU Administration Protocol Famotidine 20 mg 11/17/20 22:00 Famotidine 20 Mg Tab PO BID [facility] Folic Acid 1 mg 12/27/20 10:00 11/17/20 09:29 Folic Acid 1 Mg Tab PO 1 mg QDAY SHANTANU Administration Gabapentin 400 mg 11/16/20 06:00 11/17/20 13:21 Gabapentin 400 Mg Cap PO 400 mg Q8HR SHANTANU Administration Hydromorphone HCl 4 mg 11/16/20 03:14 11/17/20 12:07 Hydromorphone 2 Mg Tab PO 4 mg QID PRN Administration Pain , Severe (7-10) Sodium Chloride 1,000 mls @ 75 mls/hr 11/16/20 02:45 11/16/20 03:43 Nacl 0.9% 1000 Ml IV 75 mls/hr DIRECT SHANTANU Administration Methylprednisolone Sodium 250 mls @ 250 mls/hr 11/16/20 05:00 11/17/20 05:55 Succinate 1,000 mg/ Sodium IV 11/21/20 04:59 250 mls/hr Chloride Q24H SHANTANU Administration Metoclopramide HCl 10 mg 11/16/20 02:33 Metoclopramide 10 Mg/2 Ml Inj IV Q6H PRN Nausea And Vomiting Nicotine 14 mg 11/16/20 10:00 11/17/20 09:29 Nicotine 14 Mg/24 Hr Patch TD 14 mg QDAY SHANTANU Administration Ondansetron HCl 4 mg 11/16/20 02:33 Ondansetron 4 Mg/2 Ml Inj IV Q8H PRN Nausea And Vomiting Oxycodone/Acetaminophen 1 tab 11/16/20 02:33 11/17/20 16:33 Oxycodone /Acetaminophen 5-325mg Tab PO 1 tab Q6H PRN Administration Pain, Moderate (4-6) Quetiapine Fumarate 200 mg 11/16/20 22:00 11/16/20 21:25 Quetiapine 200 Mg Tab PO 200 mg QHS SHANTANU Administration Sertraline HCl 50 mg 11/16/20 10:00 11/17/20 09:29 Sertraline 50 Mg Tab PO 50 mg QDAY SHANTANU Administration Sodium Chloride 10 ml 11/16/20 10:00 11/17/20 09:27 Sodium Chloride 0.9% 10 Ml Flush Syringe IV 10 ml BID SHANTANU Administration Sodium Chloride 10 ml 11/16/20 02:33 Sodium Chloride 0.9% 10 Ml Flush Syringe IV PRN PRN LINE FLUSH
[2020-11-17] MEDS: QUEtiapine 200 MG TAB PO SCH (22:46)
[2020-11-17] MEDS: FAMOTIDINE 20 MG TAB PO SCH (22:46)
[2020-11-17] MEDS: ENOXAPARIN 40 MG/0.4 ML INJ SUB-Q SCH (22:47)
[2020-11-18] MEDS: oxyCODONE /ACETAMINOPHEN 5-325MG TAB PO PRN ×4 (00:08→18:29)
[2020-11-18] MEDS: HYDROmorphone 2 MG TAB PO PRN ×3 (03:15→21:22)
[2020-11-18] MEDS: methylPREDNISolone Sod Suc 1,000 MG in SODIUM CHLORIDE 0.9% 250ML 250 ML IV SCH (06:01)
[2020-11-18] MEDS: GABAPENTIN 400 MG CAP PO SCH ×3 (06:01→21:23)
[2020-11-18] MEDS ORDERED: LORazepam 2 MG/ML VIAL IV ONE (09:00)
[2020-11-18] MEDS: oxyCODONE 5 MG TAB PO PRN ×2 (12:04→18:30)
[2020-11-18] MEDS: SERTRALINE 50 MG TAB PO SCH (12:05)
[2020-11-18] MEDS: NICOTINE 14 MG/24 HR PATCH TD SCH (12:05)
[2020-11-18] MEDS: amLODIPine 10 MG TAB PO SCH (12:05)
[2020-11-18] MEDS: FOLIC ACID 1 MG TAB PO SCH (12:05)
[2020-11-18] MEDS: FAMOTIDINE 20 MG TAB PO SCH ×2 (12:06→21:22)
--- NOTE | 2020-11-18 13:07 | Magnetic Resonance Report ---
MRI LUMBAR SPINE 11/18/2020 INDICATION / CLINICAL INFORMATION: MS flare. Technologist note:Unable to complete contrast sequences of lumbar, patient became extremely destructi ve toward MRI equipment, patient was administered Ativan prior to exam, COMPARISON: None available. FINDINGS: GENERAL OBSERVATIONS: Unenhanced MR images of the lumbar spine were obtained. Left convex scoliosis is centered at the L2-3 level. There is evidence of compression of the upper endplates of the L1 and L3 vertebral bodies, with appro ximately 20-30% loss of vertebral body height. Bone marrow signal change in the upper half of these v ertebral bodies suggest that these compression deformities are acute or recent. There is no evidence of retropulsion. Remaining lumbar vertebral body heights are well preserved. This patient have a hist ory of recent traumatic injury to the cervical spine. [id number] ANALYSIS: L5-S1: Unremarkable. L4-5: Mild diffuse disc bulging. L3-4: Unremarkable. L2-3: Unremarkable. L1-2: Unremarkable. BONE MARROW: As above. SPINAL CORD/CAUDA EQUINA: No significant abnormality. No evidence of abnormal signal within the caud a equina. PARASPINAL SOFT TISSUES: No significant abnormality. IMPRESSION: Mild compression deformities of L1 and L3, with bone marrow signal changes suggesting that they are r ecent or acute. No evidence of canal narrowing or stenosis. Signer Name: Eren Nicolas MD Signed: 11/18/2020 1:03 PM Workstation Name: [id number]
--- NOTE | 2020-11-18 13:11 | Magnetic Resonance Report ---
MRI CERVICAL SPINE 11/18/2020 INDICATION / CLINICAL INFORMATION: MS flare. COMPARISON: None available. FINDINGS: GENERAL OBSERVATIONS: Unenhanced and enhanced MR images of the cervical spine were obtained. No previ ous studies are available for comparison. There is extensive patchy and diffuse T2 weighted signal change present within the cervical and upper thoracic spinal cord, consistent with the provided history of demyelination/multiple sclerosis. Near continuous T2-weighted signal changes are present from C2-3 through C6, with additional patchy areas of signal abnormality at C1, C7, T1 and T2. There is no definite associated abnormal contrast enhanc ement. Minimal degenerative disc bulging is present at C3-4 through C5-6. There is no evidence of focal disc herniation or nerve root compression. CRANIO-CERVICAL JUNCTION: As above BONE MARROW: Unremarkable PARASPINAL SOFT TISSUES: No significant abnormality. There is no abnormal contrast enhancement. IMPRESSION: Diffuse T2-weighted signal changes throughout the cervical and upper thoracic spinal cord, compatibl e with the provided clinical information of multiple sclerosis/demyelination. No associated contrast enhancement. Signer Name: Eren Nicolas MD Signed: 11/18/2020 1:06 PM Workstation Name: [id number]
--- NOTE | 2020-11-18 13:15 | Magnetic Resonance Report ---
MRI THORACIC SPINE 11/18/2020 INDICATION / CLINICAL INFORMATION: MS flare. COMPARISON: None available. FINDINGS: GENERAL OBSERVATIONS: Unenhanced and enhanced MR images of the thoracic spine were obtained. There is no evidence of acute abnormality. Diffuse patchy foci of increased T2-weighted signal are present throughout the thoracic spinal cord, consistent with the provided history of multiple sclerosis/demyelination. There is no definite eviden ce of associated abnormal contrast enhancement. Right convex scoliosis of the thoracic spine is present. Vertebral body height and alignment is other [place] unremarkable. There is no evidence of disc herniation. There is no evidence of canal or foraminal impingement. BONE MARROW: No significant abnormality. SPINAL CORD: As above PARASPINAL SOFT TISSUES: No significant abnormality. IMPRESSION: Scattered foci of increased T2-weighted signal within the thoracic spinal cord, consistent with the p rovided history of multiple sclerosis. No abnormal contrast enhancement. Signer Name: Eren Nicolas MD Signed: 11/18/2020 1:11 PM Workstation Name: [id number]
--- NOTE | 2020-11-18 14:03 | Progress Note ---
Assessment and Plan Assessment and plan: 1) Multiple sclerosis exacerbation Current Visit: Yes Status: Acute Plan to address problem: Continue Solu-Medrol as ordered. Taper with prednisone at discharge Neurology consult recommendations appreciated MRI brain, cervical, thoracic and lumbar pending (2) Inability to perform activities of daily living Current Visit: Yes Status: Acute Plan to address problem: Patient needs physical therapy and Occupational Therapy (3) Depression Current Visit: Yes Status: Chronic Qualifiers: Depression Type: unspecified Qualified Code(s): F32.9 - Major depressive disorder, single episode, unspecified Plan to address problem: Continue Zoloft (4) Nicotine dependence Current Visit: Yes Status: Chronic Qualifiers: Nicotine product type: cigarettes Plan to address problem: Patient counseled about smoking. Patient started on NicoDerm patch (5) DVT prophylaxis Current Visit: Yes Status: Acute Plan to address problem: On Lovenox 40 mg once a day and GI prophylaxis History Interval history: Requesting for increases dosage of pain medications as per RN Patient sleepy when I saw him this evening On solumedrol. MRI completed Neurology on board Hospitalist Physical - Physical exam Narrative exam: VITAL SIGNS: Reviewed. GENERAL: Awake HEAD: No signs of head trauma. EYES: Pupils are equal. Extraocular motions intact. MOUTH: Oropharynx is normal. NECK: No adenopathy, no JVD. CHEST: Chest with diminished breath sounds bilaterally. No wheezes, rales, or rhonchi. CARDIAC: normal S1 and S2, without murmurs, gallops, or rubs. ABDOMEN: Soft, non tender and non distended. No rebound or guarding, and no masses palpated. Bowel Sounds normal. MUSCULOSKELETAL: LE : 3-4/5 on both lower extremities NEUROLOGIC EXAM: Alert and oriented x3. No focal neurologic deficits SKIN: No obvious lesions - Constitutional Vitals: Temp Pulse Resp BP Pulse Ox 98.2 F 72 18 136/91 96 11/18/20 08:33 11/18/20 08:33 11/18/20 08:33 11/18/20 08:33 11/18/20 08:33 Results - Labs CBC & Chem 7: 11/16/20 05:05 11/17/20 04:41 Labs: Laboratory Last Values WBC 13.0 K/mm3 (4.5-11.0) H 11/16/20 05:05 RBC 4.80 M/mm3 (3.65-5.03) 11/16/20 05:05 Hgb 12.3 gm/dl (11.8-15.2) 11/16/20 05:05 Hct 37.7 % (35.5-45.6) 11/16/20 05:05 MCV 79 fl (84-94) L 11/16/20 05:05 MCH 26 pg (28-32) L 11/16/20 05:05 MCHC 33 % (32-34) 11/16/20 05:05 RDW 21.0 % (13.2-15.2) H 11/16/20 05:05 Plt Count 553 K/mm3 (140-440) H 11/16/20 05:05 Lymph % (Auto) 3.6 % (13.4-35.0) L 11/16/20 05:05 [place] % (Auto) 0.8 % (0.0-7.3) 11/16/20 05:05 Eos % (Auto) 0.0 % (0.0-4.3) 11/16/20 05:05 Baso % (Auto) 0.1 % (0.0-1.8) 11/16/20 05:05 Lymph # (Auto) 0.5 K/mm3 (1.2-5.4) L 11/16/20 05:05 [place] # (Auto) 0.1 K/mm3 (0.0-0.8) 11/16/20 05:05 Eos # (Auto) 0.0 K/mm3 (0.0-0.4) 11/16/20 05:05 Baso # (Auto) 0.0 K/mm3 (0.0-0.1) 11/16/20 05:05 Seg Neutrophils % 95.5 % (40.0-70.0) H 11/16/20 05:05 Seg Neutrophils # 12.4 K/mm3 (1.8-7.7) H 11/16/20 05:05 Sodium 142 mmol/L (137-145) 11/17/20 04:41 Potassium 4.2 mmol/L (3.6-5.0) 11/17/20 04:41 Chloride 101.4 mmol/L (98-107) 11/17/20 04:41 Carbon Dioxide 24 mmol/L (22-30) 11/17/20 04:41 Anion Gap 21 mmol/L 11/17/20 04:41 BUN 15 mg/dL (9-20) 11/17/20 04:41 Creatinine 0.6 mg/dL (0.8-1.3) L 11/17/20 04:41 Estimated GFR > 60 ml/min 11/17/20 04:41 BUN/Creatinine Ratio 25 % 11/17/20 04:41 Glucose 139 mg/dL (75-100) H 11/17/20 04:41 Hemoglobin A1c 5.8 % (4-6) 11/16/20 05:05 Calcium 9.5 mg/dL (8.4-10.2) 11/17/20 04:41 Total Bilirubin 0.20 mg/dL (0.1-1.2) 11/16/20 05:05 AST 9 units/L (5-40) 11/16/20 05:05 ALT 12 units/L (7-56) 11/16/20 05:05 Alkaline Phosphatase 91 units/L (35-129) 11/16/20 05:05 Total Protein 7.1 g/dL (6.3-8.2) 11/16/20 05:05 Albumin 3.8 g/dL (3.9-5) L 11/16/20 05:05 Albumin/Globulin Ratio 1.2 % 11/16/20 05:05 Hernandez/IV: Voiding Method Urinal IV Catheter Type [Right Wrist] INT / Saline Lock IV Catheter Type [Right Hand] INT / Saline Lock Active Medications - Current Medications Current Medications: Generic Name Dose Route Start Last Admin Trade Name Freq PRN Reason Stop Dose Admin Acetaminophen 650 mg 11/16/20 02:33 Acetaminophen 325 Mg Tab PO Q4H PRN Pain MILD(1-3)/Fever >100.5/HILARIO Amlodipine Besylate 10 mg 11/16/20 12:00 11/18/20 12:05 Amlodipine 10 Mg Tab PO 10 mg QDAY SHANTANU Administration Enoxaparin Sodium 40 mg 11/16/20 22:00 11/17/20 22:47 Enoxaparin 40 Mg/0.4 Ml Inj SUB-Q 40 mg QDAY@2200 SHANTANU Administration Protocol Famotidine 20 mg 11/17/20 22:00 11/18/20 12:06 Famotidine 20 Mg Tab PO 20 mg BID SHANTANU Administration Folic Acid 1 mg 11/16/20 10:00 11/18/20 12:05 Folic Acid 1 Mg Tab PO 1 mg QDAY SHANTANU Administration Gabapentin 400 mg 11/16/20 06:00 11/18/20 06:01 Gabapentin 400 Mg Cap PO 400 mg Q8HR SHANTANU Administration Hydromorphone HCl 4 mg 11/16/20 03:14 11/18/20 03:15 Hydromorphone 2 Mg Tab PO 4 mg QID PRN Administration Pain , Severe (7-10) Sodium Chloride 1,000 mls @ 75 mls/hr 11/16/20 02:45 11/16/20 03:43 Nacl 0.9% 1000 Ml IV 75 mls/hr DIRECT SHANTANU Administration Methylprednisolone Sodium 250 mls @ 250 mls/hr 11/16/20 05:00 11/18/20 06:01 Succinate 1,000 mg/ Sodium IV 11/21/20 04:59 250 mls/hr Chloride Q24H SHANTANU Administration Metoclopramide HCl 10 mg 11/16/20 02:33 Metoclopramide 10 Mg/2 Ml Inj IV Q6H PRN Nausea And Vomiting Nicotine 14 mg 11/16/20 10:00 11/18/20 12:05 Nicotine 14 Mg/24 Hr Patch TD 14 mg QDAY SHANTANU Administration Ondansetron HCl 4 mg 11/16/20 02:33 Ondansetron 4 Mg/2 Ml Inj IV Q8H PRN Nausea And Vomiting Oxycodone HCl 5 mg 11/17/20 17:52 11/18/20 12:04 Oxycodone 5 Mg Tab PO 5 mg Q6H PRN Administration Pain, Moderate (4-6) Oxycodone/Acetaminophen 1 tab 11/16/20 02:33 11/18/20 12:04 Oxycodone /Acetaminophen 5-325mg Tab PO 1 tab Q6H PRN Administration Pain, Moderate (4-6) Quetiapine Fumarate 200 mg 11/16/20 22:00 11/17/20 22:46 Quetiapine 200 Mg Tab PO 200 mg QHS SHANTANU Administration Sertraline HCl 150 mg 11/17/20 19:30 11/18/20 12:05 Sertraline 50 Mg Tab PO 150 mg QDAY SHANTANU Administration Sodium Chloride 10 ml 11/16/20 10:00 11/18/20 12:05 Sodium Chloride 0.9% 10 Ml Flush Syringe IV 10 ml BID SHANTANU Administration Sodium Chloride 10 ml 11/16/20 02:33 Sodium Chloride 0.9% 10 Ml Flush Syringe IV PRN PRN LINE FLUSH
[2020-11-18] MEDS: ENOXAPARIN 40 MG/0.4 ML INJ SUB-Q SCH (21:21)
[2020-11-18] MEDS: QUEtiapine 200 MG TAB PO SCH (21:22)
[2020-11-19] MEDS: hydrALAZINE 20 MG/1 ML INJ IM PRN ×2 (00:50→06:41)
[2020-11-19] MEDS: oxyCODONE /ACETAMINOPHEN 5-325MG TAB PO PRN ×2 (00:51→06:53)
[2020-11-19] MEDS: oxyCODONE 5 MG TAB PO PRN ×2 (00:51→06:53)
[2020-11-19] MEDS: HYDROmorphone 2 MG TAB PO PRN ×3 (03:00→19:12)
[2020-11-19] MEDS: methylPREDNISolone Sod Suc 1,000 MG in SODIUM CHLORIDE 0.9% 250ML 250 ML IV SCH (04:26)
[2020-11-19] MEDS: GABAPENTIN 400 MG CAP PO SCH ×3 (06:41→21:19)
[2020-11-19] MEDS: NICOTINE 14 MG/24 HR PATCH TD SCH (10:27)
[2020-11-19] MEDS: SERTRALINE 50 MG TAB PO SCH (10:27)
[2020-11-19] MEDS: FAMOTIDINE 20 MG TAB PO SCH ×2 (10:27→21:19)
[2020-11-19] MEDS: FOLIC ACID 1 MG TAB PO SCH (10:27)
[2020-11-19] MEDS: amLODIPine 10 MG TAB PO SCH (10:27)
--- NOTE | 2020-11-19 11:41 | Progress Note ---
Assessment and Plan Assessment and plan: 1) Multiple sclerosis exacerbation Current Visit: Yes Status: Acute Plan to address problem: Continue Solu-Medrol as ordered. Taper with prednisone at discharge Neurology consult recommendations appreciated MRI brain, cervical, thoracic and lumbar results reviewed. He has L -spine changes so will ask neurosurgery to review (2) Inability to perform activities of daily living Current Visit: Yes Status: Acute Plan to address problem: PT and OT following (3) Depression Current Visit: Yes Status: Chronic Qualifiers: Depression Type: unspecified Qualified Code(s): F32.9 - Major depressive disorder, single episode, unspecified Plan to address problem: Continue Zoloft (4) Lumbar compression changes Current Visit: Yes Status: Chronic Qualifiers: Depression Type: unspecified Qualified Code(s): F32.9 - Major depressive disorder, single episode, unspecified Plan to address problem: MRI lumbar shows evidence of compression of the upper endplates of L1 1 and L3 vertebral bodies with 20 to 30% loss of vertebral body height. Neurosurgery consulted to evaluate Pain medication only as needed for pain (4) Nicotine dependence Current Visit: Yes Status: Chronic Qualifiers: Nicotine product type: cigarettes Plan to address problem: Patient counseled about smoking. Patient started on NicoDerm patch (5) DVT prophylaxis Current Visit: Yes Status: Acute Plan to address problem: On Lovenox 40 mg once a day and GI prophylaxis History Interval history: Patient has no complaints this AM. MRI images reviewed. Consulted neurosurgeon to evaluate L-spine changes as he keeps having pain around the area On solumedrol IV Neurology on board Hospitalist Physical - Physical exam Narrative exam: VITAL SIGNS: Reviewed. GENERAL: Awake HEAD: No signs of head trauma. EYES: Pupils are equal. Extraocular motions intact. MOUTH: Oropharynx is normal. NECK: No adenopathy, no JVD. CHEST: Chest with diminished breath sounds bilaterally. No wheezes, rales, or rhonchi. CARDIAC: normal S1 and S2, without murmurs, gallops, or rubs. ABDOMEN: Soft, non tender and non distended. No rebound or guarding, and no masses palpated. Bowel Sounds normal. MUSCULOSKELETAL: LE : 3-4/5 on both lower extremities NEUROLOGIC EXAM: Alert and oriented x3. SKIN: No obvious lesions - Constitutional Vitals: Temp Pulse Resp BP Pulse Ox 98.2 F 101 H 20 154/91 99 12/30/20 09:09 11/19/20 09:09 11/19/20 09:09 11/19/20 09:09 11/19/20 09:09 Results - Labs CBC & Chem 7: 11/16/20 05:05 11/17/20 04:41 Labs: Laboratory Last Values WBC 13.0 K/mm3 (4.5-11.0) H 11/16/20 05:05 RBC 4.80 M/mm3 (3.65-5.03) 11/16/20 05:05 Hgb 12.3 gm/dl (11.8-15.2) 11/16/20 05:05 Hct 37.7 % (35.5-45.6) 11/16/20 05:05 MCV 79 fl (84-94) L 11/16/20 05:05 MCH 26 pg (28-32) L 11/16/20 05:05 MCHC 33 % (32-34) 11/16/20 05:05 RDW 21.0 % (13.2-15.2) H 11/16/20 05:05 Plt Count 553 K/mm3 (140-440) H 11/16/20 05:05 Lymph % (Auto) 3.6 % (13.4-35.0) L 11/16/20 05:05 [place] % (Auto) 0.8 % (0.0-7.3) 11/16/20 05:05 Eos % (Auto) 0.0 % (0.0-4.3) 11/16/20 05:05 Baso % (Auto) 0.1 % (0.0-1.8) 11/16/20 05:05 Lymph # (Auto) 0.5 K/mm3 (1.2-5.4) L 11/16/20 05:05 [place] # (Auto) 0.1 K/mm3 (0.0-0.8) 11/16/20 05:05 Eos # (Auto) 0.0 K/mm3 (0.0-0.4) 11/16/20 05:05 Baso # (Auto) 0.0 K/mm3 (0.0-0.1) 11/16/20 05:05 Seg Neutrophils % 95.5 % (40.0-70.0) H 11/16/20 05:05 Seg Neutrophils # 12.4 K/mm3 (1.8-7.7) H 11/16/20 05:05 Sodium 142 mmol/L (137-145) 11/17/20 04:41 Potassium 4.2 mmol/L (3.6-5.0) 11/17/20 04:41 Chloride 101.4 mmol/L (98-107) 11/17/20 04:41 Carbon Dioxide 24 mmol/L (22-30) 11/17/20 04:41 Anion Gap 21 mmol/L 11/17/20 04:41 BUN 15 mg/dL (9-20) 11/17/20 04:41 Creatinine 0.6 mg/dL (0.8-1.3) L 11/17/20 04:41 Estimated GFR > 60 ml/min 11/17/20 04:41 BUN/Creatinine Ratio 25 % 11/17/20 04:41 Glucose 139 mg/dL (75-100) H 11/17/20 04:41 Hemoglobin A1c 5.8 % (4-6) 11/16/20 05:05 Calcium 9.5 mg/dL (8.4-10.2) 11/17/20 04:41 Total Bilirubin 0.20 mg/dL (0.1-1.2) 11/16/20 05:05 AST 9 units/L (5-40) 11/16/20 05:05 ALT 12 units/L (7-56) 11/16/20 05:05 Alkaline Phosphatase 91 units/L (35-129) 11/16/20 05:05 Total Protein 7.1 g/dL (6.3-8.2) 11/16/20 05:05 Albumin 3.8 g/dL (3.9-5) L 11/16/20 05:05 Albumin/Globulin Ratio 1.2 % 11/16/20 05:05 Hernandez/IV: Voiding Method Urinal IV Catheter Type [Right Wrist] INT / Saline Lock IV Catheter Type [Right Hand] INT / Saline Lock Active Medications - Current Medications Current Medications: Generic Name Dose Route Start Last Admin Trade Name Freq PRN Reason Stop Dose Admin Acetaminophen 650 mg 11/16/20 02:33 Acetaminophen 325 Mg Tab PO Q4H PRN Pain MILD(1-3)/Fever >100.5/HILARIO Amlodipine Besylate 10 mg 11/16/20 12:00 11/19/20 10:27 Amlodipine 10 Mg Tab PO 10 mg QDAY SHANTANU Administration Enoxaparin Sodium 40 mg 11/16/20 22:00 11/18/20 21:21 Enoxaparin 40 Mg/0.4 Ml Inj SUB-Q 40 mg QDAY@2200 SHANTANU Administration Protocol Famotidine 20 mg 11/17/20 22:00 11/19/20 10:27 Famotidine 20 Mg Tab PO 20 mg BID SHANTANU Administration Folic Acid 1 mg 11/16/20 10:00 11/19/20 10:27 Folic Acid 1 Mg Tab PO 1 mg QDAY SHANTANU Administration Gabapentin 400 mg 11/16/20 06:00 11/19/20 06:41 Gabapentin 400 Mg Cap PO 400 mg Q8HR SHANTANU Administration Hydromorphone HCl 2 mg 11/19/20 10:30 Hydromorphone 2 Mg Tab PO QID PRN Pain , Severe (7-10) Sodium Chloride 1,000 mls @ 75 mls/hr 11/16/20 02:45 11/16/20 03:43 Nacl 0.9% 1000 Ml IV 75 mls/hr DIRECT SHANTANU Administration Methylprednisolone Sodium 250 mls @ 250 mls/hr 11/16/20 05:00 11/19/20 04:26 Succinate 1,000 mg/ Sodium IV 11/21/20 04:59 250 mls/hr Chloride Q24H SHANTANU Administration Metoclopramide HCl 10 mg 11/16/20 02:33 Metoclopramide 10 Mg/2 Ml Inj IV Q6H PRN Nausea And Vomiting Nicotine 14 mg 11/16/20 10:00 11/19/20 10:27 Nicotine 14 Mg/24 Hr Patch TD 14 mg QDAY SHANTANU Administration Ondansetron HCl 4 mg 11/16/20 02:33 Ondansetron 4 Mg/2 Ml Inj IV Q8H PRN Nausea And Vomiting Oxycodone/Acetaminophen 2 tab 11/19/20 10:30 Oxycodone /Acetaminophen 5-325mg Tab PO Q6H PRN Pain, Moderate (4-6) Quetiapine Fumarate 200 mg 11/16/20 22:00 11/18/20 21:22 Quetiapine 200 Mg Tab PO 200 mg QHS SHANTANU Administration Sertraline HCl 150 mg 11/17/20 19:30 11/19/20 10:27 Sertraline 50 Mg Tab PO 150 mg QDAY SHANTANU Administration Sodium Chloride 10 ml 11/16/20 10:00 11/19/20 10:27 Sodium Chloride 0.9% 10 Ml Flush Syringe IV 10 ml BID SHANTANU Administration Sodium Chloride 10 ml 11/16/20 02:33 Sodium Chloride 0.9% 10 Ml Flush Syringe IV PRN PRN LINE FLUSH
--- NOTE | 2020-11-19 13:19 | Progress Note ---
Assessment and Plan 35 y/o M w/ multiple sclerosis, compression fractures of L1 and L3 -please obtain CT Lumbar spine without contrast to further evaluate the bony architecture and fracture morphology -will arrange for TLSO brace, keep in bed for now -full consult note to follow Subjective Date of service: 11/19/20 Interval history: NSGY update: MRI reviewed- acute- subacute superior endplate compression fractures of L1 and L3 vertebral bodies. There is no significant retropulsion or involvement of the posterior ligamentous complex. Objective - Vital Sign Vital Signs - 12hr 11/19/20 11/19/20 03:46 09:09 Temperature 98.0 F 98.2 F Pulse Rate 101 H Respiratory 18 20 Rate Blood Pressure 172/112 154/91 O2 Sat by Pulse 99 Oximetry - Laboratory Findings CBC and BMP: 11/16/20 05:05 11/17/20 04:41 Abnormal Lab Findings: Abnormal Labs 11/16/20 11/16/20 11/17/20 05:05 05:05 04:41 WBC 13.0 H MCV 79 L MCH 26 L RDW 21.0 H Plt Count 553 H Lymph % (Auto) 3.6 L Lymph # (Auto) 0.5 L Seg Neutrophils % 95.5 H Seg Neutrophils # 12.4 H BUN 1 L Creatinine 0.6 L 0.6 L Glucose 122 H 139 H Albumin 3.8 L
--- NOTE | 2020-11-19 17:36 | Consultation ---
History of Present Illness Consult date: 11/19/20 Reason for Consult: Spine fractures Chief complaint: Leg weakness History of present illness: Dennys Kennedy is a 35 y/o M that presented to [facility] ED yesterday evening due to worsening bilateral leg weakness. He has a history of multiple sclerosis, experiencing flare ups every 3-4 months. He states that this episode is consistent with his flareups. During the course of his work up, an MRI of his lumbar spine was obtained. It revealed acute compression fractures at L1 and L3. MRI C/T spine with T2 hyper-intense intramedullary signal consistent with diagnosis of multiple sclerosis. He reportedly fell 1 week ago, and does endorse lumbar pain without radiation, numbness, tingling or weakness. Past History Past Medical History: other (Multiple Sclerosis ) Medications and Allergies Allergies Allergy/AdvReac Type Severity Reaction Status Date / Time albuterol Allergy Hives Verified 11/14/20 21:30 ibuprofen Allergy Hives Verified 11/14/20 21:30 Home Medications Medication Instructions Recorded Confirmed Last Taken Type Cholecalciferol Vit D3 [Vitamin D3 2 tab PO DAILY 11/15/20 11/16/20 Unknown History 1,000 UNIT TAB] Folic Acid 1 mg PO DAILY 11/15/20 11/16/20 Unknown History Gabapentin [Neurontin] 400 mg PO Q8HR 11/15/20 11/15/20 Unknown History HYDROmorphone [Dilaudid] 1 tab PO BID 11/15/20 11/19/20 11/15/20 21:00 History Naproxen 375 mg PO BID 11/15/20 11/19/20 Unknown History QUEtiapine [SEROquel] 200 mg PO BID 11/15/20 11/15/20 Unknown History Sertraline [Zoloft] 150 mg PO DAILY 11/15/20 11/16/20 Unknown History Vitamin B-1 1 mg PO DAILY 11/15/20 11/16/20 Unknown History methylPREDNISolone [Medrol 4MG 4 mg PO DAILY #21 tab.ds.pk 11/15/20 11/18/20 Unknown Rx DOSEPAK (21 tabs)] Ferosul 65 mg PO DAILY 11/16/20 11/16/20 Unknown History Tamsulosin [Flomax] 0.4 mg PO DAILY 11/16/20 11/16/20 Unknown History Active Meds: Active Medications Acetaminophen (Acetaminophen 325 Mg Tab) 650 mg PO Q4H PRN PRN Reason: Pain MILD(1-3)/Fever >100.5/HILARIO Amlodipine Besylate (Amlodipine 10 Mg Tab) 10 mg PO QDAY [facility] Last Admin: 11/19/20 10:27 Dose: 10 mg Documented by: Enoxaparin Sodium (Enoxaparin 40 Mg/0.4 Ml Inj) 40 mg SUB-Q QDAY@2200 [facility]; Protocol Last Admin: 11/18/20 21:21 Dose: 40 mg Documented by: Famotidine (Famotidine 20 Mg Tab) 20 mg PO BID [facility] Last Admin: 11/19/20 10:27 Dose: 20 mg Documented by: Folic Acid (Folic Acid 1 Mg Tab) 1 mg PO QDAY [facility] Last Admin: 11/19/20 10:27 Dose: 1 mg Documented by: Gabapentin (Gabapentin 400 Mg Cap) 400 mg PO Q8HR [facility] Last Admin: 11/19/20 13:02 Dose: 400 mg Documented by: Hydromorphone HCl (Hydromorphone 2 Mg Tab) 2 mg PO QID PRN PRN Reason: Pain , Severe (7-10) Last Admin: 11/19/20 13:02 Dose: 2 mg Documented by: Sodium Chloride (Nacl 0.9% 1000 Ml) 1,000 mls @ 75 mls/hr IV DIRECT [facility] Last Admin: 11/16/20 03:43 Dose: 75 mls/hr Documented by: Methylprednisolone Sodium Succinate 1,000 mg/ Sodium Chloride 250 mls @ 250 mls/hr IV Q24H [facility] Stop: 11/21/20 04:59 Last Admin: 11/19/20 04:26 Dose: 250 mls/hr Documented by: Metoclopramide HCl (Metoclopramide 10 Mg/2 Ml Inj) 10 mg IV Q6H PRN PRN Reason: Nausea And Vomiting Nicotine (Nicotine 14 Mg/24 Hr Patch) 14 mg TD QDAY [facility] Last Admin: 11/19/20 10:27 Dose: 14 mg Documented by: Ondansetron HCl (Ondansetron 4 Mg/2 Ml Inj) 4 mg IV Q8H PRN PRN Reason: Nausea And Vomiting Oxycodone/Acetaminophen (Oxycodone /Acetaminophen 5-325mg Tab) 2 tab PO Q6H PRN PRN Reason: Pain, Moderate (4-6) Quetiapine Fumarate (Quetiapine 200 Mg Tab) 200 mg PO QHS [facility] Last Admin: 11/18/20 21:22 Dose: 200 mg Documented by: Sertraline HCl (Sertraline 50 Mg Tab) 150 mg PO QDAY [facility] Last Admin: 11/19/20 10:27 Dose: 150 mg Documented by: Sodium Chloride (Sodium Chloride 0.9% 10 Ml Flush Syringe) 10 ml IV BID [facility] Last Admin: 11/19/20 10:27 Dose: 10 ml Documented by: Sodium Chloride (Sodium Chloride 0.9% 10 Ml Flush Syringe) 10 ml IV PRN PRN PRN Reason: LINE FLUSH Review of Systems All systems: negative (what is indicated in his HPI) Physical Examination - Vital Signs Vital Signs: Vital Signs Temp Pulse Resp BP Pulse Ox 97.5 F L 87 18 208/104 96 11/15/20 11:48 11/15/20 11:48 11/15/20 11:48 11/15/20 11:48 11/15/20 11:48 - Physical Exam Narrative exam: seen and examined no acute distress NC/AT RRR breathing non-labored abdomen soft no cyanosis or clubbing A&Ox3 CNII-XII intact motor strength- at least antigravity in all myotomes in both legs sensation grossly intact to light touch in b/l LE tenderness to palpation of lumbar spine Results - Laboratory Findings CBC and BMP: 11/16/20 05:05 11/17/20 04:41 Abnormal Lab Findings: Abnormal Labs 11/16/20 11/16/20 11/17/20 05:05 05:05 04:41 WBC 13.0 H MCV 79 L MCH 26 L RDW 21.0 H Plt Count 553 H Lymph % (Auto) 3.6 L Lymph # (Auto) 0.5 L Seg Neutrophils % 95.5 H Seg Neutrophils # 12.4 H BUN 1 L Creatinine 0.6 L 0.6 L Glucose 122 H 139 H Albumin 3.8 L Assessment and Plan 35 y/o M w/ multiple sclerosis, L1 and L3 anterior superior endplate fractures -maintain lumbar spine precautions -I have arranged for TLSO brace -when brace is available, will need standing/sitting ap/lateral xrays of lumbar spine -if xrays are negative for fracture progression, patient is clear for discharge -patient will need to follow up in clinic in 6 weeks with repeat ap/lateral xrays
[2020-11-19] MEDS: ENOXAPARIN 40 MG/0.4 ML INJ SUB-Q SCH (21:19)
[2020-11-19] MEDS: QUEtiapine 200 MG TAB PO SCH (21:20)
[2020-11-20] MEDS: HYDROmorphone 2 MG TAB PO PRN ×2 (04:17→13:09)
[2020-11-20] MEDS: methylPREDNISolone Sod Suc 1,000 MG in SODIUM CHLORIDE 0.9% 250ML 250 ML IV SCH (04:17)
[2020-11-20] MEDS: GABAPENTIN 400 MG CAP PO SCH ×3 (05:06→21:13)
--- NOTE | 2020-11-20 10:42 | Progress Note ---
Assessment and Plan Assessment and plan: 1) Multiple sclerosis exacerbation Current Visit: Yes Status: Acute Plan to address problem: Continue Solu-Medrol as ordered. Taper with prednisone 80mg from 12/22/2019 then with a 10 mg reduction each day) Neurology consult recommendations appreciated MRI cervical, thoracic and lumbar results reviewed. He has L -spine asvgaqe-F2-T2 compression changes with loss of vertebral body height. Neurosurgery on board. Plan for CT lumbar spine to evaluate bony architecture as per neurosurgery TLSO brace with ambulation PT on board MRI brain top be done today (2) Inability to perform activities of daily living Current Visit: Yes Status: Acute Plan to address problem: PT and OT following (3) Depression Current Visit: Yes Status: Chronic Qualifiers: Depression Type: unspecified Qualified Code(s): F32.9 - Major depressive disorder, single episode, unspecified Plan to address problem: Continue Zoloft (4) Lumbar compression changes Current Visit: Yes Status: Chronic Qualifiers: Depression Type: unspecified Qualified Code(s): F32.9 - Major depressive disorder, single episode, unspecified Plan to address problem: MRI lumbar shows evidence of compression of the upper endplates of L1 and L3 vertebral bodies with 20 to 30% loss of vertebral body height. Neurosurgery recommendations appreciated-plan for CT lumbar spine to evaluate bony architecture TLSO brace to ambulation Pain medication only as needed for pain (4) Nicotine dependence Current Visit: Yes Status: Chronic Qualifiers: Nicotine product type: cigarettes Plan to address problem: Patient counseled about smoking. Patient started on NicoDerm patch (5) DVT prophylaxis Current Visit: Yes Status: Acute Plan to address problem: On Lovenox 40 mg once a day and GI prophylaxis History Interval history: Patient has no complaints this AM. Neurosurgery recommends a CT lumbar spine Patient will need a TLSO brace to ambulation which will be provided as per the neurosurgeon. Patient to complete Solu-Medrol tomorrow a.m. after which he will start prednisone 80 mg and taper. Hospitalist Physical - Physical exam Narrative exam: VITAL SIGNS: Reviewed. GENERAL: Awake HEAD: No signs of head trauma. EYES: Pupils are equal. Extraocular motions intact. MOUTH: Oropharynx is normal. NECK: No adenopathy, no JVD. CHEST: Chest with diminished breath sounds bilaterally. No wheezes, rales, or rhonchi. CARDIAC: normal S1 and S2, without murmurs, gallops, or rubs. ABDOMEN: Soft, non tender and non distended. No rebound or guarding, and no masses palpated. Bowel Sounds normal. MUSCULOSKELETAL: LE : 3-4/5 on both lower extremities NEUROLOGIC EXAM: Alert and oriented x3. SKIN: No obvious lesions - Constitutional Vitals: Temp Pulse Resp BP Pulse Ox 97.9 F 95 H 14 164/110 96 11/20/20 05:51 11/20/20 05:51 11/20/20 05:51 11/20/20 05:51 11/20/20 05:51 Results - Labs CBC & Chem 7: 11/16/20 05:05 11/17/20 04:41 Labs: Laboratory Last Values WBC 13.0 K/mm3 (4.5-11.0) H 11/16/20 05:05 RBC 4.80 M/mm3 (3.65-5.03) 11/16/20 05:05 Hgb 12.3 gm/dl (11.8-15.2) 11/16/20 05:05 Hct 37.7 % (35.5-45.6) 11/16/20 05:05 MCV 79 fl (84-94) L 11/16/20 05:05 MCH 26 pg (28-32) L 11/16/20 05:05 MCHC 33 % (32-34) 11/16/20 05:05 RDW 21.0 % (13.2-15.2) H 11/16/20 05:05 Plt Count 553 K/mm3 (140-440) H 11/16/20 05:05 Lymph % (Auto) 3.6 % (13.4-35.0) L 11/16/20 05:05 [place] % (Auto) 0.8 % (0.0-7.3) 11/16/20 05:05 Eos % (Auto) 0.0 % (0.0-4.3) 11/16/20 05:05 Baso % (Auto) 0.1 % (0.0-1.8) 11/16/20 05:05 Lymph # (Auto) 0.5 K/mm3 (1.2-5.4) L 11/16/20 05:05 [place] # (Auto) 0.1 K/mm3 (0.0-0.8) 11/16/20 05:05 Eos # (Auto) 0.0 K/mm3 (0.0-0.4) 11/16/20 05:05 Baso # (Auto) 0.0 K/mm3 (0.0-0.1) 11/16/20 05:05 Seg Neutrophils % 95.5 % (40.0-70.0) H 11/16/20 05:05 Seg Neutrophils # 12.4 K/mm3 (1.8-7.7) H 11/16/20 05:05 Sodium 142 mmol/L (137-145) 11/17/20 04:41 Potassium 4.2 mmol/L (3.6-5.0) 11/17/20 04:41 Chloride 101.4 mmol/L (98-107) 11/17/20 04:41 Carbon Dioxide 24 mmol/L (22-30) 11/17/20 04:41 Anion Gap 21 mmol/L 11/17/20 04:41 BUN 15 mg/dL (9-20) 11/17/20 04:41 Creatinine 0.6 mg/dL (0.8-1.3) L 11/17/20 04:41 Estimated GFR > 60 ml/min 11/17/20 04:41 BUN/Creatinine Ratio 25 % 11/17/20 04:41 Glucose 139 mg/dL (75-100) H 11/17/20 04:41 Hemoglobin A1c 5.8 % (4-6) 11/16/20 05:05 Calcium 9.5 mg/dL (8.4-10.2) 11/17/20 04:41 Total Bilirubin 0.20 mg/dL (0.1-1.2) 11/16/20 05:05 AST 9 units/L (5-40) 11/16/20 05:05 ALT 12 units/L (7-56) 11/16/20 05:05 Alkaline Phosphatase 91 units/L (35-129) 11/16/20 05:05 Total Protein 7.1 g/dL (6.3-8.2) 11/16/20 05:05 Albumin 3.8 g/dL (3.9-5) L 11/16/20 05:05 Albumin/Globulin Ratio 1.2 % 11/16/20 05:05 Hernandez/IV: Voiding Method Urinal IV Catheter Type [Right Wrist] INT / Saline Lock IV Catheter Type [Right Hand] INT / Saline Lock Active Medications - Current Medications Current Medications: Generic Name Dose Route Start Last Admin Trade Name Freq PRN Reason Stop Dose Admin Acetaminophen 650 mg 11/16/20 02:33 Acetaminophen 325 Mg Tab PO Q4H PRN Pain MILD(1-3)/Fever >100.5/HILARIO Amlodipine Besylate 10 mg 11/16/20 12:00 11/19/20 10:27 Amlodipine 10 Mg Tab PO 10 mg QDAY SHANTANU Administration Enoxaparin Sodium 40 mg 11/16/20 22:00 11/19/20 21:19 Enoxaparin 40 Mg/0.4 Ml Inj SUB-Q 40 mg QDAY@2200 SHANTANU Administration Protocol Famotidine 20 mg 11/17/20 22:00 11/19/20 21:19 Famotidine 20 Mg Tab PO 20 mg BID SHANTANU Administration Folic Acid 1 mg 11/16/20 10:00 11/19/20 10:27 Folic Acid 1 Mg Tab PO 1 mg QDAY SHANTANU Administration Gabapentin 400 mg 11/16/20 06:00 11/20/20 05:06 Gabapentin 400 Mg Cap PO 400 mg Q8HR SHANTANU Administration Hydromorphone HCl 2 mg 11/19/20 10:30 11/20/20 04:17 Hydromorphone 2 Mg Tab PO 2 mg QID PRN Administration Pain , Severe (7-10) Sodium Chloride 1,000 mls @ 75 mls/hr 11/16/20 02:45 11/16/20 03:43 Nacl 0.9% 1000 Ml IV 75 mls/hr DIRECT SHANTANU Administration Methylprednisolone Sodium 250 mls @ 250 mls/hr 11/16/20 05:00 11/20/20 04:17 Succinate 1,000 mg/ Sodium IV 11/21/20 04:59 250 mls/hr Chloride Q24H SHANTANU Administration Metoclopramide HCl 10 mg 11/16/20 02:33 Metoclopramide 10 Mg/2 Ml Inj IV Q6H PRN Nausea And Vomiting Nicotine 14 mg 11/16/20 10:00 11/19/20 10:27 Nicotine 14 Mg/24 Hr Patch TD 14 mg QDAY SHANTANU Administration Ondansetron HCl 4 mg 11/16/20 02:33 Ondansetron 4 Mg/2 Ml Inj IV Q8H PRN Nausea And Vomiting Oxycodone/Acetaminophen 2 tab 11/19/20 10:30 Oxycodone /Acetaminophen 5-325mg Tab PO Q6H PRN Pain, Moderate (4-6) Quetiapine Fumarate 200 mg 11/16/20 22:00 11/19/20 21:20 Quetiapine 200 Mg Tab PO 200 mg QHS SHANTANU Administration Sertraline HCl 150 mg 11/17/20 19:30 11/19/20 10:27 Sertraline 50 Mg Tab PO 150 mg QDAY SHANTANU Administration Sodium Chloride 10 ml 11/16/20 10:00 11/19/20 21:22 Sodium Chloride 0.9% 10 Ml Flush Syringe IV 10 ml BID SHANTANU Administration Sodium Chloride 10 ml 11/16/20 02:33 Sodium Chloride 0.9% 10 Ml Flush Syringe IV PRN PRN LINE FLUSH
[2020-11-20] MEDS: SERTRALINE 50 MG TAB PO SCH (10:50)
[2020-11-20] MEDS: FAMOTIDINE 20 MG TAB PO SCH ×2 (10:50→21:13)
[2020-11-20] MEDS: FOLIC ACID 1 MG TAB PO SCH (10:50)
[2020-11-20] MEDS: NICOTINE 14 MG/24 HR PATCH TD SCH (10:50)
[2020-11-20] MEDS: amLODIPine 10 MG TAB PO SCH (10:52)
[2020-11-20] MEDS ORDERED: LORazepam 2 MG/ML VIAL IV SCH (11:00)
--- NOTE | 2020-11-20 13:54 | Cat Scan Report ---
CT lumbar spine wo con INDICATION: Evaluate bony architecture and fracture morphology. TECHNIQUE: Axial CT images of the lumbar spine were obtained. Sagittal and coronal reformatted images were produ kassi. All CT scans at this location are performed using CT dose reduction for ALARA by means of automa yifan exposure control. COMPARISON: MRI 11/18/2020. FINDINGS: ALIGNMENT: Normal alignment. VERTEBRAE: Acute L1 and L3 compression fractures. No extension to the posterior cortex or posterior e lements. Canal compromise. There is approximately 25% loss vertebral body height at L1 and approximat nicole 30% loss vertebral body height at L3. The other vertebral body heights are preserved. Transverse processes are intact. SPONDYLOSIS: No significant spondylosis. SOFT TISSUES: No significant soft tissue abnormality. ADDITIONAL FINDINGS: No significant additional findings. IMPRESSION: 1. Acute L1 and L3 compression fractures with approximately 25 and 30% loss of vertebral body height respectively. Signer Name: Daniel Pablo MD Signed: 11/20/2020 1:50 PM Workstation Name: [id number]
[2020-11-20] MEDS: oxyCODONE /ACETAMINOPHEN 5-325MG TAB PO PRN (19:35)
[2020-11-20] MEDS: QUEtiapine 200 MG TAB PO SCH (21:12)
[2020-11-20] MEDS: ENOXAPARIN 40 MG/0.4 ML INJ SUB-Q SCH (21:13)
[2020-11-21] MEDS: HYDROmorphone 2 MG TAB PO PRN ×4 (00:04→19:34)
[2020-11-21] MEDS: VALSARTAN 160MG TAB PO SCH ×2 (00:08→10:06)
[2020-11-21 05:45] LABS: Hematocrit 34.4 % (35.5-45.6); Hemoglobin 11.3 gm/dl (11.8-15.2); Mean Corpuscular HGB Conc 33 % (32-34); Mean Corpuscular Volume 79 fl (84-94); Platelet Count 319 K/mm3 (140-440); Red Blood Count 4.33 M/mm3 (3.65-5.03)
[2020-11-21] MEDS: oxyCODONE /ACETAMINOPHEN 5-325MG TAB PO PRN (05:53)
[2020-11-21] MEDS: GABAPENTIN 400 MG CAP PO SCH ×3 (05:53→21:51)
[2020-11-21 06:00] LABS: Alanine Aminotransferase 13 units/L (7-56); Albumin 3.2 g/dL (3.9-5); Blood Urea Nitrogen 15 mg/dL (9-20); Hemolysis Index 8
[2020-11-21 06:01] LABS: Lymphocytes % (Auto) 6.3 % (13.4-35.0); Red Cell Distribution Width 20.8 % (13.2-15.2)
[2020-11-21 06:04] LABS: Monocytes % (Auto) 4.9 % (0.0-7.3)
[2020-11-21 06:05] LABS: Basophils % (Auto) 0.1 % (0.0-1.8); Lymphocytes # (Auto) 1.3 K/mm3 (1.2-5.4)
[2020-11-21 06:21] LABS: BUN/Creatinine Ratio 25
[2020-11-21] MEDS: SERTRALINE 50 MG TAB PO SCH (10:06)
[2020-11-21] MEDS: FOLIC ACID 1 MG TAB PO SCH (10:06)
[2020-11-21] MEDS: FAMOTIDINE 20 MG TAB PO SCH ×2 (10:06→21:51)
[2020-11-21] MEDS: NICOTINE 14 MG/24 HR PATCH TD SCH (10:06)
[2020-11-21] MEDS: amLODIPine 10 MG TAB PO SCH (10:06)
--- NOTE | 2020-11-21 12:55 | Progress Note ---
Subjective Date of service: 11/21/20 Interval history: Assessment and plan: 1) Multiple sclerosis exacerbation Current Visit: Yes Status: Acute Plan to address problem: Continue Solu-Medrol as ordered. Taper with prednisone 80mg from 12/22/2019 then with a 10 mg reduction each day) Neurology consult recommendations appreciated MRI cervical, thoracic and lumbar results reviewed. He has L -spine ch anges-L1-L3 compression changes with loss of vertebral body height. Neurosurgery on board. Plan for CT lumbar spine to evaluate bony architecture as per neurosurgery TLSO brace with ambulation PT on board MRI brain Started on prednisone 80 mg today and to be tapered by 10 mg daily per review of neurology note (2) Inability to perform activities of daily living Current Visit: Yes Status: Acute Plan to address problem: PT and OT following (3) Depression Current Visit: Yes Status: Chronic Qualifiers: Depression Type: unspecified Qualified Code(s): F32.9 - Major depressive d isorder, single episode, unspecified Plan to address problem: Continue Zoloft (4) Lumbar compression changes Current Visit: Yes Status: Chronic Qualifiers: Depression Type: unspecified Qualified Code(s): F32.9 - Major depressive disorder, single episode, unspecified Plan to address problem: MRI lumbar shows evidence of compression fractures of the upper endplates of L1 and L3 vertebral bodies with 20 to 30% loss of vertebral body height. Neurosurgery note reviewed CT of the lumbar spine results reviewed Outpatient follow-up with neurosurgery once discharged TLSO brace to ambulation Patient complains of severe pain and states that Dilaudid 2 mg is not working. He states he takes Dilaudid 4 mg at home Had a long discussion with the patient Will schedule Percocet every 8 hours and continue Dilaudid 2 mg every 6 hours as needed (4) Nicotine dependence Current Visit: Yes Status: Chronic Qualifiers: Nicotine product type: cigarettes Plan to address problem: Patient counseled about smoking. Patient started on NicoDerm patch Leukocytosis: Secondary to steroids No focus of infection (5) DVT prophylaxis Current Visit: Yes Status: Acute Plan to address problem: On Lovenox 40 mg once a day and GI prophylaxis 11/21/20 patient is alert and oriented and he states that he is not happy with Dilaudid dose being decreased to 2 mg Complains of severe lower back pain. He offers no other specific complaints. Lab results reviewed Narrative exam: VITAL SIGNS: Reviewed. GENERAL: Awake HEAD: No signs of head trauma. EYES: Pupils are equal. EOMI MOUTH: Oropharynx is normal. NECK: No adenopathy, no JVD. CHEST: Clear but diminished breath sounds CARDIAC: Regular rate and rhythm ABDOMEN: Soft, non tender and non distended. MUSCULOSKELETAL: LE : 3-4/5 on both lower extremities NEUROLOGIC EXAM: Alert and oriented x3. SKIN: No obvious lesions Objective - Constitutional Vitals: Vital Signs - 12hr 11/21/20 11/21/20 11/21/20 04:41 05:53 07:30 Temperature 98.0 F Pulse Rate 70 Respiratory 18 20 18 Rate Blood Pressure 142/78 O2 Sat by Pulse 100 Oximetry - Labs CBC & Chem 7: 11/21/20 04:33 11/21/20 04:33 Labs: Abnormal lab results 11/21/20 11/21/20 Range/Units 04:33 04:33 WBC 20.4 H (4.5-11.0) K/mm3 Hgb 11.3 L (11.8-15.2) gm/dl Hct 34.4 L (35.5-45.6) % MCV 79 L (84-94) fl MCH 26 L (28-32) pg RDW 20.8 H (13.2-15.2) % Lymph % (Auto) 6.3 L (13.4-35.0) % [place] # (Auto) 1.0 H (0.0-0.8) K/mm3 Seg Neutrophils % 88.7 H (40.0-70.0) % Seg Neutrophils # 18.1 H (1.8-7.7) K/mm3 Creatinine 0.6 L (0.8-1.3) mg/dL Glucose 147 H (75-100) mg/dL Total Protein 5.8 L (6.3-8.2) g/dL Albumin 3.2 L (3.9-5) g/dL
[2020-11-21] MEDS: predniSONE 20 MG TAB PO SCH (14:00)
--- NOTE | 2020-11-21 14:00 | Magnetic Resonance Report ---
MR brain wo/w con INDICATION / CLINICAL INFORMATION: 35 years Male; MS flare. TECHNIQUE: Multiplanar, multisequence MR images of the brain were obtained. Some motion artifact. COMPARISON: None available. FINDINGS: BRAIN / INTRACRANIAL CONTENTS: No acute hemorrhage, mass effect, midline shift, hydrocephalus, or acu te, large territorial infarct. No chronic infarct or atrophy. Multiple areas of white matter abnormality are seen in both cerebral hemispheres, predominantly in a periventricular and deep white matter locations, although mild peripheral disease is seen in the supe rior parietal lobule on the right. These findings would be consistent with patient's history of demye linating disease. No diffusion abnormality appreciated, nor are there signs signs of abnormal enhance ment seen-no signs of acute demyelination in the setting of demyelinating disease. I see no signs of abnormal enhancement on whole brain imaging, following contrast demonstration. CRANIOCERVICAL JUNCTION: No significant abnormality. VASCULAR FLOW-VOIDS: No significant abnormality. ORBITS: No significant abnormality of visualized orbits. SINUSES / MASTOIDS: Mild mucosal thickening seen in the ethmoids. ADDITIONAL FINDINGS: None. IMPRESSION: 1. Mild white matter disease as described above. Findings would be compatible with patient's history of demyelinating disease. No definitive signs of acute myelination. 2. Otherwise, no focal mass, hemorrhage, hydrocephalus, or acute ischemia. Signer Name: Burton Lyon MD, III Signed: 11/21/2020 1:55 PM Workstation Name: [id number]
[2020-11-21] MEDS: oxyCODONE /ACETAMINOPHEN 5-325MG TAB PO SCH ×2 (14:01→21:51)
[2020-11-21] MEDS: ENOXAPARIN 40 MG/0.4 ML INJ SUB-Q SCH (21:50)
[2020-11-21] MEDS: QUEtiapine 200 MG TAB PO SCH (21:52)
[2020-11-22] MEDS: HYDROmorphone 2 MG TAB PO PRN ×2 (02:14→09:44)
[2020-11-22] MEDS: oxyCODONE /ACETAMINOPHEN 5-325MG TAB PO SCH ×3 (05:35→22:25)
[2020-11-22] MEDS: GABAPENTIN 400 MG CAP PO SCH ×3 (05:36→22:26)
[2020-11-22 08:17] LABS: Basophils % (Auto) 0.1 % (0.0-1.8); Eosinophils # (Auto) 0.1 K/mm3 (0.0-0.4); Eosinophils % (Auto) 0.5 % (0.0-4.3); Hematocrit 36.4 % (35.5-45.6); Hemoglobin 11.9 gm/dl (11.8-15.2); Lymphocytes # (Auto) 1.9 K/mm3 (1.2-5.4); Lymphocytes % (Auto) 16.6 % (13.4-35.0); Mean Corpuscular HGB Conc 33 % (32-34); Mean Corpuscular Volume 80 fl (84-94); Monocytes # (Auto) 0.9 K/mm3 (0.0-0.8); Monocytes % (Auto) 7.9 % (0.0-7.3); Platelet Count 281 K/mm3 (140-440); Red Blood Count 4.54 M/mm3 (3.65-5.03)
[2020-11-22 08:18] LABS: Red Cell Distribution Width 20.9 % (13.2-15.2)
[2020-11-22] MEDS: predniSONE 20 MG TAB PO SCH (09:44)
[2020-11-22] MEDS: FOLIC ACID 1 MG TAB PO SCH (09:44)
[2020-11-22] MEDS: VALSARTAN 160MG TAB PO SCH (09:44)
[2020-11-22] MEDS: FAMOTIDINE 20 MG TAB PO SCH ×2 (09:44→22:25)
[2020-11-22] MEDS: NICOTINE 14 MG/24 HR PATCH TD SCH (09:44)
[2020-11-22] MEDS: SERTRALINE 50 MG TAB PO SCH (09:44)
[2020-11-22] MEDS: amLODIPine 10 MG TAB PO SCH (09:45)
--- NOTE | 2020-11-22 11:30 | Discharge Summary ---
Providers - Providers Date of Admission: 11/17/20 11:37 Date of discharge: 11/22/20 Attending physician: ANGIE DAVID 11/16/20 02:33 Consult to Physician [CONS] Routine Comment: Consulting Provider: FRANCISCO JAVIER BUTLER Physician Instructions: Reason For Exam: Multiple sclerosis flareup 11/18/20 14:02 Physical Therapy Evaluation and Treat [CONS] Routine Comment: Reason For Exam: Bilateral lower extremity weakness 11/19/20 08:28 Consult to Physician [CONS] Routine Comment: Consulting Provider: ERROL BILLS II Physician Instructions: Reason For Exam: Compression deformity of the L spine. 11/19/20 10:24 Occupational Therapy Evaluate and Treat [CONS] Routine Comment: Reason For Exam: MS Primary care physician: LAMP DEVELOPER Hospitalization Condition: Fair Pertinent studies: MRI of C-spine thoracic spine and lumbar spine CT scan of lumbar spine MRI brain Hospital course: Patient is ambulatory and walks without any support to the bathroom and per nursing staff he even came to the nursing station once on his on his own However patient complains of severe pain in the lower back. He was evaluated by neurology and neurosurgery. He was given IV steroids x10 doses and switched over to p.o. prednisone yesterday. Patient is medically stable for discharge. Although thoracolumbar support was ordered by neurosurgery, apparently this could not be provided as patient has no insurance and neurosurgeon was unable to provide him. fresh food manager contacted the neurosurgeon today and he said he would try to provide him with 1 in the next 1 week and he would see him in the office in 6 weeks. Patient is medically stable for discharge Assessment and plan: 1) Multiple sclerosis exacerbation Current Visit: Yes Status: Acute Plan to address problem: Continue Solu-Medrol as ordered. Taper with prednisone 80mg from 12/22/2019 then with a 10 mg reduction each day) Neurology consult recommendations appreciated MRI cervical, thoracic and lumbar results reviewed. He has L -spine fqeasor-H9-L9 compression changes with loss of vertebral body height. Neurosurgery on board. CT of the lumbar spine showed acute fractures L1-L3 MRI brain results reviewed. There is some demyelination but no evidence of acute exacerbation of MS Started on prednisone 80 mg today and to be tapered by 10 mg daily per review of neurology note (2) Inability to perform activities of daily living Current Visit: Yes Status: Acute Plan to address problem: PT and OT following (3) Depression Current Visit: Yes Status: Chronic Qualifiers: Depression Type: unspecified Qualified Code(s): F32.9 - Major depressive disorder, single episode, unspecified Plan to address problem: Continue Zoloft (4) Lumbar compression changes Current Visit: Yes Status: Chronic Qualifiers: Depression Type: unspecified Qualified Code(s): F32.9 - Major depressive disorder, single episode, unspecified Plan to address problem: MRI lumbar shows evidence of compression fractures of the upper endplates of L1 and L3 vertebral bodies with 20 to 30% loss of vertebral body height. Neurosurgery note reviewed CT of the lumbar spine results reviewed Outpatient follow-up with neurosurgery once discharged cont. Percocet every 8 hours and continue Dilaudid 2 mg every 6 hours as needed (4) Nicotine dependence Current Visit: Yes Status: Chronic Qualifiers: Nicotine product type: cigarettes Plan to address problem: Patient counseled about smoking. Patient started on NicoDerm patch Leukocytosis: Secondary to steroids No focus of infection Disposition: DC-01 TO HOME OR SELFCARE Time spent for discharge: 38 min Core Measure Documentation - Palliative Care Palliative Care/ Comfort Measures: Not Applicable - Core Measures Any of the following diagnoses?: none Exam - Constitutional Vitals: Temp Pulse Resp BP Pulse Ox 98.1 F 79 18 129/80 94 11/22/20 07:54 11/22/20 07:54 11/22/20 07:54 11/22/20 07:54 11/22/20 07:54 General appearance: Present: no acute distress, well-nourished - EENT Eyes: Present: PERRL, EOM intact ENT: hearing intact, clear oral mucosa - Neck Neck: Present: supple, normal ROM - Respiratory Respiratory effort: normal Respiratory: bilateral: CTA - Cardiovascular Rhythm: regular Heart Sounds: Present: S1 & S2 - Extremities Extremities: No edema - Abdominal General gastrointestinal: Present: soft, non-tender Male genitourinary: Present: deferred - Rectal Rectal Exam: deferred - Integumentary Integumentary: Present: clear - Musculoskeletal Musculoskeletal: strength equal bilaterally - Psychiatric Psychiatric: appropriate mood/affect - Neurologic Neurologic: moves all extremities Plan Activity: advance as tolerated, fall precautions Weight Bearing Status: Weight Bear as Tolerated Diet: regular, low fat, low cholesterol Durable Medical Equipment Needed Upon Discharge: other (Patient apparently has wheelchair ) Follow up with: PRIMARY CARE, [Primary Care Provider] - 3-5 Days ERROL BILLS II, MD [Staff Physician] - 6 Weeks FRANCISCO JAVIER BUTLER MD [Staff Physician] - 14 Days Prescriptions: amLODIPine 10 mg PO QDAY #30 tablet predniSONE [Deltasone] 80 mg PO QDAY #14 tablet HYDROmorphone [Dilaudid] 2 mg PO QID PRN #10 tablet PRN Reason: Pain , Severe (7-10) Valsartan [Diovan] 160 mg PO DAILY #30 tablet Folic Acid 1 mg PO DAILY #30 Gabapentin 400 mg PO Q8HR #90 cap Famotidine [Pepcid] 20 mg PO BID #60 tablet oxyCODONE /ACETAMINOPHEN [Percocet 5/325 mg] 1 tab PO Q8HR #10 tablet
[2020-11-22] MEDS ORDERED: VALSARTAN 40 MG TAB PO SCH (22:00)
[2020-11-22] MEDS: ENOXAPARIN 40 MG/0.4 ML INJ SUB-Q SCH (22:26)
[2020-11-22] MEDS: QUEtiapine 200 MG TAB PO SCH (22:26)
[2020-11-23] MEDS: GABAPENTIN 400 MG CAP PO SCH (05:54)
[2020-11-23] MEDS: oxyCODONE /ACETAMINOPHEN 5-325MG TAB PO SCH (05:54)
[2020-11-23 09:12] VITALS: BP 140/105
[2020-11-23] MEDS: VALSARTAN 160MG TAB PO SCH (10:44)
[2020-11-23] MEDS: FAMOTIDINE 20 MG TAB PO SCH (10:44)
[2020-11-23] MEDS: NICOTINE 14 MG/24 HR PATCH TD SCH (10:44)
[2020-11-23] MEDS: predniSONE 20 MG TAB PO SCH (10:45)
[2020-11-23] MEDS: amLODIPine 10 MG TAB PO SCH (10:46)
[2020-11-23] MEDS: FOLIC ACID 1 MG TAB PO SCH (10:49)
[2020-11-23] MEDS: SERTRALINE 50 MG TAB PO SCH (10:49)
--- NOTE | 2020-11-23 13:53 | Discharge Summary ---
Providers - Providers Date of Admission: 11/17/20 11:37 Date of discharge: 11/23/20 Attending physician: ANGIE DAVID 11/16/20 02:33 Consult to Physician [CONS] Routine Comment: Consulting Provider: FRANCISCO JAVIER BUTLER Physician Instructions: Reason For Exam: Multiple sclerosis flareup 11/18/20 14:02 Physical Therapy Evaluation and Treat [CONS] Routine Comment: Reason For Exam: Bilateral lower extremity weakness 11/19/20 08:28 Consult to Physician [CONS] Routine Comment: Consulting Provider: ERROL BILLS II Physician Instructions: Reason For Exam: Compression deformity of the L spine. 11/19/20 10:24 Occupational Therapy Evaluate and Treat [CONS] Routine Comment: Reason For Exam: MS Primary care physician: [employer] Hospitalization Condition: Fair Disposition: DC-01 TO HOME OR SELFCARE Core Measure Documentation - Palliative Care Palliative Care/ Comfort Measures: Not Applicable Exam - Constitutional Vitals: Temp Pulse Resp BP Pulse Ox 98.0 F 90 18 140/105 97 11/23/20 08:17 11/23/20 08:17 11/23/20 08:17 11/23/20 08:17 11/23/20 08:17 Plan Follow up with: FRANCISCO JAVIER BUTLER MD [Staff Physician] - 14 Days ERROL BILLS II, MD [Staff Physician] - 6 Weeks PRIMARY CAREMD [Primary Care Provider] - 3-5 Days Prescriptions: amLODIPine 10 mg PO QDAY #30 tablet predniSONE [Deltasone] 80 mg PO QDAY #14 tablet HYDROmorphone [Dilaudid] 2 mg PO QID PRN #10 tablet PRN Reason: Pain , Severe (7-10) Valsartan [Diovan] 160 mg PO DAILY #30 tablet Folic Acid 1 mg PO DAILY #30 Gabapentin 400 mg PO Q8HR #90 cap Famotidine [Pepcid] 20 mg PO BID #60 tablet oxyCODONE /ACETAMINOPHEN [Percocet 5/325 mg] 1 tab PO Q8HR #10 tablet
--- NOTE | 2020-11-23 13:54 | Progress Note ---
Subjective Date of service: 11/23/20 Interval history: Assessment and plan: 1) Multiple sclerosis exacerbation Current Visit: Yes Status: Acute Plan to address problem: Continue Solu-Medrol as ordered. Taper with prednisone 80mg from 12/22/2019 then with a 10 mg reduction each day) Neurology consult recommendations appreciated MRI cervical, thoracic and lumbar results reviewed. He has L -spine ch anges-L1-L3 compression changes with loss of vertebral body height. Neurosurgery on board. Plan for CT lumbar spine to evaluate bony architecture as per neurosurgery TLSO brace with ambulation PT on board MRI brain Started on prednisone 80 mg today and to be tapered by 10 mg daily per review of neurology note (2) Inability to perform activities of daily living Current Visit: Yes Status: Acute Plan to address problem: PT and OT following (3) Depression Current Visit: Yes Status: Chronic Qualifiers: Depression Type: unspecified Qualified Code(s): F32.9 - Major depressive d isorder, single episode, unspecified Plan to address problem: Continue Zoloft (4) Lumbar compression changes Current Visit: Yes Status: Chronic Qualifiers: Depression Type: unspecified Qualified Code(s): F32.9 - Major depressive disorder, single episode, unspecified Plan to address problem: MRI lumbar shows evidence of compression fractures of the upper endplates of L1 and L3 vertebral bodies with 20 to 30% loss of vertebral body height. Neurosurgery note reviewed CT of the lumbar spine results reviewed Outpatient follow-up with neurosurgery once discharged TLSO brace to ambulation Patient complains of severe pain and states that Dilaudid 2 mg is not working. He states he takes Dilaudid 4 mg at home Had a long discussion with the patient Will schedule Percocet every 8 hours and continue Dilaudid 2 mg every 6 hours as needed (4) Nicotine dependence Current Visit: Yes Status: Chronic Qualifiers: Nicotine product type: cigarettes Plan to address problem: Patient counseled about smoking. Patient started on NicoDerm patch Leukocytosis: Secondary to steroids No focus of infection (5) DVT prophylaxis Current Visit: Yes Status: Acute Plan to address problem: On Lovenox 40 mg once a day and GI prophylaxis 11/21/20 patient is alert and oriented and he states that he is not happy with Dilaudid dose being decreased to 2 mg Complains of severe lower back pain. He offers no other specific complaints. Lab results reviewed Narrative exam: VITAL SIGNS: Reviewed. GENERAL: Awake HEAD: No signs of head trauma. EYES: Pupils are equal. EOMI MOUTH: Oropharynx is normal. NECK: No adenopathy, no JVD. CHEST: Clear but diminished breath sounds CARDIAC: Regular rate and rhythm ABDOMEN: Soft, non tender and non distended. MUSCULOSKELETAL: LE : 3-4/5 on both lower extremities NEUROLOGIC EXAM: Alert and oriented x3. SKIN: No obvious lesions Objective - Constitutional Vitals: Vital Signs - 12hr 11/23/20 11/23/20 06:00 08:17 Temperature 98.3 F 98.0 F Pulse Rate 85 90 Respiratory 18 18 Rate Blood Pressure 135/86 140/105 O2 Sat by Pulse 96 97 Oximetry - Labs CBC & Chem 7: 11/22/20 06:55 11/21/20 04:33
== END 2020-11-23 14:59 | disposition home or self-care (01) | DRG 59 ==
LOC: ED 10:57 → 4A 22:33 → OBSVTOIN 11-17 11:37
PROVIDERS: ADMIT Internal Medicine; ATTEND Internal Medicine
DX: G35 Multiple sclerosis (principal); M48.56XA Collapsed vertebra, not elsewhere classified, lumbar region, initial encounter for fracture; F17.210 Nicotine dependence, cigarettes, uncomplicated; F32.9 Major depressive disorder, single episode, unspecified; F41.9 Anxiety disorder, unspecified; D72.828 Other elevated white blood cell count; T38.0X5A Adverse effect of glucocorticoids and synthetic analogues, initial encounter; Z78.9 Other specified health status; Z79.899 Other long term (current) drug therapy; Z88.6 Allergy status to analgesic agent; Z88.8 Allergy status to other drugs, medicaments and biological substances; Y92.89 Other specified places as the place of occurrence of the external cause
CPT/HCPCS: 36415; 70553; 72131; 72148; 72156; 72157; 80048; 80053; 83036; 85025; 90471; 96365; 96375; 99406; G0378; A9577; J0360; J1170; J1650; J2060; J2930; J7030; J7050; J7512